=== PATIENT | female | born 1970 | race Caucasian/White ===

== ENCOUNTER → 2018-09-01 14:15 | Outpatient (CLI) | payer OTHER, SELFPAY ==
--- NOTE | 2018-09-01 14:30 | DI.MRI.S_ITS ---
PROCEDURE: MR SHOULDER RT WO CON INDICATIONS: right shoulder pain TECHNIQUE: Noncontrast oblique coronal T2 fast spin echo with fat saturation, oblique sagittal T1 spin echo and T2 fast spin echo with fat saturation, axial T1 spin echo and T2 fast spin echo with fat saturation through the shoulder. COMPARISON: None. FINDINGS: Image quality: Excellent. Rotator cuff: There is mild fissuring of the bursal margin of the supraspinatus tendon. The infraspinatus, and subscapularis tendons appear intact throughout. Sagittal images demonstrate no muscle atrophy. Bones and bursae: There is a 2.2 cm in diameter cystic lesion in the metaphysis of the proximal right humerus. Lesion has well-defined margins with no associated osseous destruction or bone marrow edema. No bone marrow contusions or fractures. No acromioclavicular joint degeneration. The acromion demonstrates conventional anatomy, without an os acromiale. Small amount of fluid noted in the subacromial/subdeltoid bursa. Capsule and soft tissues: In the absence of intra-articular contrast, the labrum and glenohumeral ligaments appear intact. The long head of the biceps tendon demonstrates normal location and morphology. The rotator interval appears normal, without fibrosis. The coracohumeral ligament is normal in thickness. IMPRESSION: 1. Mild fissuring of the bursal margin of the supraspinatus tendon. 2. Mild subacromial/subdeltoid bursitis. 3. 2.5 cm proximal humerus bone cyst. Dictated by: Delmis Araujo MD, PhD on 09/01/2018 at 17:33 Approved by: Delmis Araujo MD, PhD on 09/04/2018 at 9:46
== END ==
PROVIDERS: PCP Family Medicine; Visit Provider Family Medicine
DX: M25.511 Pain in right shoulder (principal); M75.51 Bursitis of right shoulder; M85.621 Other cyst of bone, right upper arm
CPT/HCPCS: 73221

== ENCOUNTER → 2018-09-18 10:51 | Outpatient (CLI) | payer OTHER, SELFPAY ==
[2018-09-18 11:18] LABS: Influenza A and B by PCR Rapid Negative (Negative)
== END ==
PROVIDERS: PCP Family Medicine; Visit Provider Physician Assistant
DX: R68.89 Other general symptoms and signs (principal)
CPT/HCPCS: 87400

== ENCOUNTER → 2018-09-19 10:33 | Outpatient (CLI) | payer OTHER, SELFPAY ==
[2018-09-19 10:38] LABS: WBC Urine None Seen (0-5/HPF)
[2018-09-19 11:34] LABS: Appearance Urine UA CLEAR; Bilirubin Urine UA NEGATIVE (NEGATIVE); Color Urine UA YELLOW; Glucose Urine UA NEGATIVE (Negative); Ketones Urine UA NEGATIVE (NEGATIVE); Leukocyte Esterase Urine UA NEGATIVE (NEGATIVE); Nitrite Urine UA NEGATIVE (Negative); Occult Blood Urine UA 1+ (Negative); Protein Urine UA NEGATIVE (Negative); Specific Gravity Urine UA <=1.005 (1.000-1.035); Urobilinogen Urine UA 0.2 E.U./dL (0.2); pH Urine UA 5.5 (4.5-8.0)
[2018-09-19 11:56] LABS: Bacteria Urine Occasional (0-1); Culture Indicated Urine Cult Not Indicated; RBC Urine 0-1/HPF (0-5/HPF); Squamous Epithelial Cell Urine 0-1 /HPF
== END ==
PROVIDERS: PCP Family Medicine; Visit Provider Family Medicine
DX: M54.5 Low back pain (principal)
CPT/HCPCS: 81001

== ENCOUNTER → 2018-10-24 14:10 | Outpatient (CLI) | payer OTHER, SELFPAY ==
[2018-10-24 15:36] LABS: Alanine Aminotransferase 18 IU/L (9-52); Albumin 4.6 g/dL (3.5-5.0); Albumin Globulin Ratio 1.4 (1.0-2.8); Alkaline Phosphatase 90 U/L (38-126); Aspartate Aminotransferase 18 IU/L (14-36); BUN Creatinine Ratio 17.1 (6-22); Bilirubin Total 0.3 mg/dL (0.2-1.3); Blood Urea Nitrogen 12 mg/dL (7-17); Calcium 9.4 mg/dL (8.4-10.2); Carbon Dioxide 26 mmol/L (22-32); Chloride 103 mmol/L (98-107); Estimated Glomerular Filt Rate > 60.0 mL/min (>60); Globulin 3.4 g/dL (1.7-4.1); Glucose 106 mg/dL (70-100); HEMOLYSIS < 15 (0-50); Phosphorous 3.3 mg/dL (2.5-4.5); Potassium 3.5 mmol/L (3.4-5.1); Sodium 140 mmol/L (137-145)
[2018-10-24 15:46] LABS: Prealbumin 33.8 mg/dL (17.6-36.0)
[2018-10-24 17:17] LABS: Vitamin D 25 Hydroxy (D3) 34.2 ng/mL (30.0-100.0)
== END ==
PROVIDERS: PCP Family Medicine; Visit Provider Family Medicine
DX: E55.9 Vitamin D deficiency, unspecified (principal); E56.9 Vitamin deficiency, unspecified; E78.5 Hyperlipidemia, unspecified; R89.9 Unspecified abnormal finding in specimens from other organs, systems and tissues
CPT/HCPCS: 36415; 80053; 82306; 82728; 83735; 84100; 84134

== ENCOUNTER → 2018-10-30 15:18 | Outpatient (CLI) | payer OTHER, SELFPAY ==
--- NOTE | 2018-10-30 | DI.MG.S_ITS ---
BILATERAL DIGITAL SCREENING MAMMOGRAM 3D/2D WITH CAD: 10/30/2018 CLINICAL: Routine screening. Comparison is made to exams dated: 10/28/2017 mammogram, 10/11/2016 mammogram, and 10/10/2015 mammogram - [facility]. The tissue of both breasts is extremely dense, which lowers the sensitivity of mammography. Current study was also evaluated with a Computer Aided Detection (CAD) system. No significant masses, calcifications, or other findings are seen in either breast. There has been no significant interval change. IMPRESSION: NEGATIVE There is no mammographic evidence of malignancy. A 1 year screening mammogram is recommended. This exam was interpreted at Station ID: [id number]. NOTE: For mammograms, a report in lay terms will be sent to the patient. Approximately 15% of breast malignancies will not be visualized mammographically. In the management of a palpable breast mass, a negative mammogram must not discourage biopsy of a clinically suspicious lesion. Electronically Signed By: Jacek persaud/mana:10/30/2018 20:50:32 copy to: NAHED POZO letter sent: Normal Exam ACR BI-RADS Category 1: Negative [id number]
== END ==
PROVIDERS: PCP Family Medicine; Visit Provider Family Medicine
DX: Z12.31 Encounter for screening mammogram for malignant neoplasm of breast (principal)
CPT/HCPCS: 77063; 77067

== ENCOUNTER 2019-01-10 16:44 | Emergency (ER) | payer OTHER, SELFPAY ==
[2019-01-10 16:55] VITALS: BP 109/64; PULSE 89; RESP 14; TEMP 36.8; O2SAT 100; BMI 25.9
[2019-01-10 17:02] VITALS: BP 100/63; PULSE 74; RESP 16; O2SAT 98
--- NOTE | 2019-01-10 17:02 | DI.US.S_ITS ---
PROCEDURE: US ABDOMEN LIMITED INDICATIONS: RUQ PAIN, CONCERN FOR GB PATHOLOGY TECHNIQUE: Real-time focused scanning was performed of the abdomen, with image documentation. COMPARISON: None. FINDINGS: Incidental note is made of a diffusely echogenic lesion in the right lobe of the liver measuring 1.9 cm in maximum diameter, consistent with a hemangioma. Liver is otherwise unremarkable. No gallstones. No gallbladder wall thickening. No pain on examination. No biliary ductal dilatation. Common bile duct measures 4 mm. Visualized portions of the pancreas are unremarkable. IMPRESSION: 1. No evidence of gallstones. 2. Incidental liver hemangioma. Dictated by: Amandeep Dsa M.D. on 01/10/2019 at 18:26 Approved by: Amandeep Das M.D. on 01/10/2019 at 18:29
--- NOTE | 2019-01-10 17:04 | ED.ABDPAIN ---
HPI - Abdominal Pain <DO Yohan Frey Last Filed: 01/11/19 07:20> General Chief Complaint: Abdominal Pain Stated Complaint: ABD PAIN, BELCHING Time Seen by Provider: 01/10/19 16:54 Source: patient Mode of arrival: ambulatory Limitations: no limitations History of Present Illness HPI narrative: 48-year-old female here for evaluation of right-sided abdominal pain. Patient states that several days ago she started to not feel well. Had some nausea but no vomiting. No change in bowel or urine. States that today she started having right-sided abdominal pain. She states she felt like she needed to belch however was unable to. She was then able to belch which did improve her symptoms somewhat but not completely. She is not a change with urination. No vaginal bleeding. No history of kidney stones. Does get worse with palpation. She went to the walk-in clinic who sent her here for evaluation for concerns of possible appendicitis. Related Data Previous Rx's Medication Instructions Recorded [id number]-[id number]-[id number] 0 tab PO SEE INSTRUCTIONS #30 03/27/18 50 mg-325 mg-40 mg tablet tab-cap cephalexin [Keflex] 500 mg PO QID 10 Days #40 cap 01/10/19 hydrocodone-acetaminophen 1 tab PO Q4-6H PRN #10 tab 01/10/19 ondansetron 4 mg PO TID-QID PRN #10 tab 01/10/19 Allergies Allergy/AdvReac Type Severity Reaction Status Date / Time Sulfa (Sulfonamide AdvReac Mild VOMITING Verified 01/10/19 17:31 Antibiotics) [SULFA (SULFONAMIDE ANTIBIOTICS)] Review of Systems <DO Yohan Frey Last Filed: 01/11/19 07:20> Constitutional Denies fever(s) and Denies headache(s) ENT Ears, Nose, Mouth, and Throat: Denies headache(s) Cardiovascular Denies chest pain, Denies syncope and Denies dyspnea Respiratory Denies dyspnea Gastrointestinal Gastrointestinal: Reports abdominal pain, Denies change in stool character, Reports nausea and Denies vomiting Genitourinary Denies dysuria and Denies vaginal discharge Musculoskeletal Denies myalgias and Denies arthralgias Integumentary/Breasts Denies rash Neurologic Denies syncope and Denies headache(s) Hematologic/Lymphatic Denies easy bleeding and Denies easy bruising PFSH <DO Yohan Frey Last Filed: 01/11/19 07:20> Medical History Adjustment disorder (Chronic) Asthma (Chronic) CTS (carpal tunnel syndrome) (Chronic 1998) Migraines (Chronic 1986) Painful menstrual periods (Chronic 2005) Abnormal Pap smear of cervix (Resolved) Acne (Resolved 2010) Chicken pox (Resolved 1973) Foot fracture (Resolved 1987) Ovarian cyst (Resolved 2002) Social History Smoking Status: Never smoker Exam <DO Yohan Frey Last Filed: 01/11/19 07:20> Initial Vital Signs Initial Vital Signs: Vital Signs Temperature 98.3 F 01/10/19 16:55 Pulse Rate 89 01/10/19 16:55 Respiratory Rate 14 01/10/19 16:55 Blood Pressure 109/64 01/10/19 16:55 Pulse Oximetry 100 01/10/19 16:55 Const General: cooperative, comfortable, well developed, well groomed and No acute distress Orientation: alert and awake [facility] Head: normal to inspection and normocephalic Resp Effort & Inspection: normal respiratory effort Auscultation: clear to auscultation bilaterally Cardio Rate: regular rate Rhythm: regular rhythm GI Inspection: non-distended Palpation: soft, No firm and tender (Right upper quadrant, right flank) Back/Spine/Pelvis Back: No CVA tenderness Skin Lesions: no lesions Rashes: no rashes Neuro General: alert and awake Cognition: normal cognition Speech: speech normal Extrem General: normal to inspection and capillary refill normal Psych Appearance: grossly normal and well kempt <Mikael Bocanegra DO - Last Filed: 01/10/19 19:39> Initial Vital Signs Initial Vital Signs: Vital Signs Temperature 98.3 F 01/10/19 16:55 Pulse Rate 89 01/10/19 16:55 Respiratory Rate 14 01/10/19 16:55 Blood Pressure 109/64 01/10/19 16:55 Pulse Oximetry 100 01/10/19 16:55 Course <Isael Brewer DO - Last Filed: 01/11/19 07:20> Orders Ordered: ED Orders 01/10/19 16:58 Complete Blood Count AUTO DIFF Stat Comprehensive Metabolic Panel Stat Lipase Stat 01/10/19 17:02 US abdomen limited Stat 01/10/19 17:58 Urine Culture Stat Urine Microscopic Stat Vital Signs - 8 hr 01/10/19 16:55 01/10/19 17:02 01/10/19 19:00 Temperature 98.3 F Pulse Rate 89 74 72 Respiratory Rate 14 16 17 Blood Pressure 109/64 Blood Pressure [Right Arm] 100/63 105/70 Pulse Oximetry 100 98 100 <Mikael Bocanegra DO - Last Filed: 01/10/19 19:39> Course Narrative: Patient received in sign-out from Dr. Brewer. I performed an independent history and physical exam no significant additions to his documentation. Labs and ultrasound are back. The ultrasound has no significant findings but does note the incidental finding of hemangioma Orders Ordered: ED Orders 01/10/19 16:58 Complete Blood Count AUTO DIFF Stat Comprehensive Metabolic Panel Stat Lipase Stat 01/10/19 17:02 US abdomen limited Stat 01/10/19 17:58 Urine Culture Stat Urine Microscopic Stat Vital Signs - 8 hr 01/10/19 16:55 01/10/19 17:02 01/10/19 19:00 Temperature 98.3 F Pulse Rate 89 74 72 Respiratory Rate 14 16 17 Blood Pressure 109/64 Blood Pressure [Right Arm] 100/63 105/70 Pulse Oximetry 100 98 100 MDM - Abdominal Pain <Isael Brewer, DO - Last Filed: 01/11/19 07:20> Lab Data Attestation: I reviewed the patient's lab results. Result diagrams: 01/10/19 16:58 01/10/19 16:58 Lab Results 01/10/19 01/10/19 01/10/19 Range/Units 16:58 16:58 17:58 WBC 12.9 H (4.5-11.0) X10^3/uL RBC 5.11 (4.0-5.2) X10^6/uL Hgb 14.5 (12.0-16.0) g/dL Hct 43.8 (36-46) % MCV 85.7 (80-100) fL MCH 28.5 (26-34) PG MCHC 33.2 (30-36) % RDW 13.7 (11.6-14.8) % Plt Count 296 (150-400) X10^3/uL Neut % (Auto) 64.7 (50-75) % Lymph % (Auto) 24.5 L (25-40) % [place] % (Auto) 7.6 (3-14) % Eos % (Auto) 2.5 (2-4) % Baso % (Auto) 0.7 (0-2) % Neut # (Auto) 8300 H (9453-8421) /uL Lymph # (Auto) 3200 (5422-4085) /uL [place] # (Auto) 1000 H (0-900) /uL Eos # (Auto) 300 (0-450) /uL Baso # (Auto) 100 (0-100) /uL Sodium 139 (137-145) mmol/L Potassium 4.4 (3.4-5.1) mmol/L Chloride 103 (98-107) mmol/L Carbon Dioxide 25 (22-32) mmol/L BUN 12 (7-17) mg/dL Creatinine 0.60 (0.52-1.04) mg/dL Estimated GFR > 60.0 (>60) mL/min BUN/Creatinine Ratio 20.0 (6-22) Glucose 87 (70-100) mg/dL Calcium 9.6 (8.4-10.2) mg/dL Total Bilirubin 0.5 (0.2-1.3) mg/dL AST 22 (14-36) IU/L ALT 23 (9-52) IU/L Alkaline Phosphatase 99 (38-126) U/L Total Protein 8.4 H (6.3-8.2) g/dL Albumin 4.6 (3.5-5.0) g/dL Globulin 3.8 (1.7-4.1) g/dL Albumin/Globulin Ratio 1.2 (1.0-2.8) Lipase 202 (23-300) U/L Urine RBC 0-1/hpf (0-5/HPF) Urine WBC 1-5/hpf (0-5/HPF) Ur Squamous Epith Cells 0-1 /hpf (0-5/HPF) Amorphous Sediment 1+ Urine Bacteria Few (2-10) H (None) Urine Mucus 1+ H (Negative) Ur Culture Indicated? Specimen cultured Point of care testing: Point of Care Testing Test Results Negative Urine Dip Bedside Urine Glucose Negative Bedside Urine Bilirubin - Negative Bedside Urine Ketone - Negative Urine Specific [place] 1.030 Bedside Urine Occult Blood + Bedside Urine pH 5.5 Bedside Urine Protein - Negative Bedside Urine Urobilinogen +/- 1mg Bedside Urine Nitrite - Negative Bedside Urine Leukocytes + 70 Esterase MDM Narrative Medical decision making narrative: Leukocytosis but no left shift. Does have blood in the urine. Labs otherwise unremarkable. Waiting ultrasound results. Care turned over to Dr. Bocanegra unchanged 50 follow-up on results. <Mikael Bocanegra DO - Last Filed: 01/10/19 19:39> Lab Data Lab Results 01/10/19 01/10/19 01/10/19 Range/Units 16:58 16:58 17:58 WBC 12.9 H (4.5-11.0) X10^3/uL RBC 5.11 (4.0-5.2) X10^6/uL Hgb 14.5 (12.0-16.0) g/dL Hct 43.8 (36-46) % MCV 85.7 (80-100) fL MCH 28.5 (26-34) PG MCHC 33.2 (30-36) % RDW 13.7 (11.6-14.8) % Plt Count 296 (150-400) X10^3/uL Neut % (Auto) 64.7 (50-75) % Lymph % (Auto) 24.5 L (25-40) % [place] % (Auto) 7.6 (3-14) % Eos % (Auto) 2.5 (2-4) % Baso % (Auto) 0.7 (0-2) % Neut # (Auto) 8300 H (7506-8686) /uL Lymph # (Auto) 3200 (9701-3223) /uL [place] # (Auto) 1000 H (0-900) /uL Eos # (Auto) 300 (0-450) /uL Baso # (Auto) 100 (0-100) /uL Sodium 139 (137-145) mmol/L Potassium 4.4 (3.4-5.1) mmol/L Chloride 103 (98-107) mmol/L Carbon Dioxide 25 (22-32) mmol/L BUN 12 (7-17) mg/dL Creatinine 0.60 (0.52-1.04) mg/dL Estimated GFR > 60.0 (>60) mL/min BUN/Creatinine Ratio 20.0 (6-22) Glucose 87 (70-100) mg/dL Calcium 9.6 (8.4-10.2) mg/dL Total Bilirubin 0.5 (0.2-1.3) mg/dL AST 22 (14-36) IU/L ALT 23 (9-52) IU/L Alkaline Phosphatase 99 (38-126) U/L Total Protein 8.4 H (6.3-8.2) g/dL Albumin 4.6 (3.5-5.0) g/dL Globulin 3.8 (1.7-4.1) g/dL Albumin/Globulin Ratio 1.2 (1.0-2.8) Lipase 202 (23-300) U/L Urine RBC 0-1/hpf (0-5/HPF) Urine WBC 1-5/hpf (0-5/HPF) Ur Squamous Epith Cells 0-1 /hpf (0-5/HPF) Amorphous Sediment 1+ Urine Bacteria Few (2-10) H (None) Urine Mucus 1+ H (Negative) Ur Culture Indicated? Specimen cultured Point of care testing: Point of Care Testing Test Results Negative Urine Dip Bedside Urine Glucose Negative Bedside Urine Bilirubin - Negative Bedside Urine Ketone - Negative Urine Specific [place] 1.030 Bedside Urine Occult Blood + Bedside Urine pH 5.5 Bedside Urine Protein - Negative Bedside Urine Urobilinogen +/- 1mg Bedside Urine Nitrite - Negative Bedside Urine Leukocytes + 70 Esterase MDM Narrative Medical decision making narrative: 48 year old female with worsening R sided abdominal pain which seems a bit colicky. She has some reproduction of pain to palpation in RUQ. No pain in RLQ. As noted she has a slight elevation in WBCs but no L shift. UA notes L[place] and hematuria. She does admit to some atypical urination and some discomfort in her back. It seems unlikely that her UTI is contributing to her RUQ pain. Biliary, liver, pancreatitis, appendicitis considered, but thought less likely given history, exam, labs, imaging. Lengthy discussion regarding advanced imaging with CT and patient would elect to hold off for now despite a discussion of risks/benefits. She has been given return precautions and evidences her understanding by verbalizing them back to me. She is in complete agreement with discharge diagnosis and return precautions. She has had questions answered to her apparent satisfaction. Discharge Plan Departure Patient Disposition: Home Clinical Impression: Right sided abdominal pain, Pyelonephritis Discharge Date/Time: 01/10/19 19:37 Interventions: ED Discharge Assessment Last Done: 01/10/19 19:36 Instructions: Acute Abdominal Pain, DI for Urinary Tract Infection (UTI) Activity Restrictions/Additional Instructions: *You have been diagnosed with [acute right-sided abdominal pain, UTI (possible early pyelonephritis) incidental finding of liver hemangioma on ultrasound] *What to do: *Take medications as directed *Follow up for repeat abdominal exam in 12-24 hours. Return to the Emergency Department sooner if you should have any new, worsening or concerning symptoms such as worsening pain, fever > 101F, vomiting, or anything else that is bothersome to you. Prescriptions: New hydrocodone-acetaminophen 5-325 mg tablet 1 tab PO Q4-6H PRN (Reason: pain) Qty: 10 RF: 0 ondansetron 4 mg tablet,disintegrating 4 mg PO TID-QID PRN (Reason: nausea and vomiting) Qty: 10 RF: 0 cephalexin [Keflex] 500 mg capsule 500 mg PO QID 10 Days Qty: 40 RF: 0 No Action [id number] 50-325-40 mg tablet PO SEE INSTRUCTIONS Qty: 30 RF: 3 Referrals: Claudio Domínguez MD [Primary Care Provider] -
[2019-01-10 17:08] LABS: Add Manual Diff / Slide Review NO; Basophils Absolute Auto 100 /uL (0-100); Basophils Percent Auto 0.7 % (0-2); Eosinophils Absolute Auto 300 /uL (0-450); Eosinophils Percent Auto 2.5 % (2-4); Hematocrit 43.8 % (36-46); Hemoglobin 14.5 g/dL (12.0-16.0); Lymphocytes Absolute Auto 3200 /uL (1100-4500); Lymphocytes Percent Auto 24.5 % (25-40); Mean Corpuscular HGB Conc 33.2 % (30-36); Mean Corpuscular Hemoglobin 28.5 PG (26-34); Mean Corpuscular Volume 85.7 fL (80-100); Monocytes Absolute Auto 1000 /uL (0-900); Monocytes Percent Auto 7.6 % (3-14); Neutrophils Absolute Auto 8300 /uL (1500-7000); Neutrophils Percent Auto 64.7 % (50-75); Platelet Count 296 X10^3/uL (150-400); Red Blood Cell Count 5.11 X10^6/uL (4.0-5.2); Red Cell Distribution Width 13.7 % (11.6-14.8); White Blood Cell Count 12.9 X10^3/uL (4.5-11.0)
[2019-01-10 17:17] LABS: Alanine Aminotransferase 23 IU/L (9-52); Albumin 4.6 g/dL (3.5-5.0); Albumin Globulin Ratio 1.2 (1.0-2.8); Alkaline Phosphatase 99 U/L (38-126); Aspartate Aminotransferase 22 IU/L (14-36); Bilirubin Total 0.5 mg/dL (0.2-1.3); Blood Urea Nitrogen 12 mg/dL (7-17); Calcium 9.6 mg/dL (8.4-10.2); Carbon Dioxide 25 mmol/L (22-32); Chloride 103 mmol/L (98-107); Estimated Glomerular Filt Rate > 60.0 mL/min (>60); Globulin 3.8 g/dL (1.7-4.1); Glucose 87 mg/dL (70-100); HEMOLYSIS < 15 (0-50); Lipase 202 U/L (23-300); Potassium 4.4 mmol/L (3.4-5.1); Sodium 139 mmol/L (137-145); Total Protein 8.4 g/dL (6.3-8.2)
[2019-01-10 18:13] LABS: Amorphous Sediment Urine 1+; RBC Urine 0-1/HPF (0-5/HPF); Squamous Epithelial Cell Urine 0-1 /HPF (0-5/HPF); WBC Urine 1-5/HPF (0-5/HPF)
[2019-01-10 18:14] LABS: Bacteria Urine Few (2-10); Culture Indicated Urine Specimen Cultured; Mucus Urine 1+ (Negative)
[2019-01-10 19:00] VITALS: BP 105/70; PULSE 72; RESP 17; O2SAT 100
== END 2019-01-10 19:37 | disposition home or self-care (01) ==
PROVIDERS: Emergency Medicine; Emergency Provider Emergency Medicine; Family Provider Family Medicine; PCP Family Medicine
DX: R10.9 Unspecified abdominal pain (principal); N12 Tubulo-interstitial nephritis, not specified as acute or chronic
CPT/HCPCS: 36415; 36591; 76705; 80053; 81003; 81015; 81025; 83690; 85025; 87077; 87086; 87186; 99282; 99284

== ENCOUNTER 2019-01-25 16:41 | Emergency (ER) | payer OTHER, SELFPAY ==
[2019-01-25 16:43] VITALS: BP 126/72; PULSE 96; RESP 20; TEMP 36.7; O2SAT 96
--- NOTE | 2019-01-25 18:11 | ED.ABDPAIN ---
HPI - Abdominal Pain <Thea Mesa PA-C - Last Filed: 01/25/19 21:14> General Chief Complaint: Abdominal Pain Stated Complaint: no BM for 2 weeks, lots of pain today Time Seen by Provider: 01/25/19 18:03 Source: patient Mode of arrival: ambulatory Limitations: no limitations History of Present Illness HPI narrative: This 48-year-old female comes in due to greater than 2 week history of abdominal pain. She states this started on the with body aches and generalized fatigue over the next few days, then started to have ?gas pain? all over her abdomen. She was evaluated in the ED with ultrasound and lab work, diagnosed with pyelonephritis and treated. She had a negative test at that time. She states that she has had low-grade temperatures up to 99. She has had persistent difficulty moving her bowels (normally soft, regular stools, but in the last 2 weeks feels like stools are harder and has to strain). She has not seen blood or mucus in the stools. She states she has been drinking lots of fluids and eating fairly normally. She states that her symptoms improved minimally on the antibiotics, but on Tuesday spiked a temperature of 101?, no fever yesterday. She did see her PCP again due to persistent symptoms and had a CT scan scheduled for tomorrow. She comes in today because she did not have a bowel movement today (had 1 yesterday) despite taking stool softener, and states that she felt like ?bowels would explode? today and had to partially manually disimpact herself at work. She states she has been taking 1 or 2 [place] per day for pain but has been using a stool softener. She states that she did work today and has been trying to do her usual activities as pain waxes and wanes, but definitely worse and more persistent in the last 3 days. She again denies possibility of , has IUD in place and menses now. She has not had any recent illness, i.e. respiratory symptoms. She denies any recent antibiotics aside from last 2 weeks, recent travel or known exposures. Not on well water. Related Data Home Medications Medication Instructions Recorded Confirmed Calcium 1 tab PO DAILY 01/25/19 01/25/19 Fish Oil 1 cap PO DAILY 01/25/19 01/25/19 Stool Softener 2 cap PO PRN PRN 01/25/19 01/25/19 Vitamin B 1 cap PO DAILY 01/25/19 01/25/19 [id number] 1 tab PO PRN PRN 01/25/19 01/25/19 ibuprofen 1 dose PO PRN PRN 01/25/19 01/25/19 multivitamin 1 tab PO DAILY 01/25/19 01/25/19 Previous Rx's Medication Instructions Recorded ciprofloxacin 500 mg tablet 500 mg PO BID #30 tab 01/23/19 hydrocodone 5 mg-acetaminophen 325 1 tab PO BEDTIME PRN #14 tab 01/23/19 mg tablet Allergies Allergy/AdvReac Type Severity Reaction Status Date / Time Sulfa (Sulfonamide AdvReac Mild VOMITING Verified 01/23/19 10:28 Antibiotics) [SULFA (SULFONAMIDE ANTIBIOTICS)] PFSH <Thea Mesa PA-C - Last Filed: 01/25/19 21:14> Social History Smoking Status: Never smoker Exam <Thea Mesa PA-C - Last Filed: 01/25/19 21:14> Narrative Exam Narrative: GENERAL APPEARANCE: Patient sitting comfortably, in no distress. HEENT: PERRL, EOMI, no scleral icterus, conjunctivae pink, normal oropharynx NECK: Supple, no masses LUNGS: Clear to auscultation bilaterally. HEART: Rate and rhythm regular, normal S1 and S2, no S3 or S4. ABDOMEN: Soft, generalized tenderness to palpation throughout midline and both lower quadrants without clear guarding or rebound. No CVAT EXTREMITIES: No edema, no calf tenderness DERMATOLOGIC: No jaundice or exanthem NEUROLOGIC: Alert and oriented with normal speech and coordination Initial Vital Signs Initial Vital Signs: Vital Signs Temperature 98.1 F 01/25/19 16:43 Pulse Rate 96 H 01/25/19 16:43 Respiratory Rate 20 01/25/19 16:43 Blood Pressure 126/72 01/25/19 16:43 Pulse Oximetry 96 01/25/19 16:43 <Yolis Gaston MD - Last Filed: 01/26/19 02:54> Initial Vital Signs Initial Vital Signs: Vital Signs Temperature 98.1 F 01/25/19 16:43 Pulse Rate 96 H 01/25/19 16:43 Respiratory Rate 20 01/25/19 16:43 Blood Pressure 126/72 01/25/19 16:43 Pulse Oximetry 96 01/25/19 16:43 Course <Thea Mesa PA-C - Last Filed: 01/25/19 21:14> Additional Information: Reviewed findings with patient, no acute issue on CT scan, does have significant constipation and pain. She thinks that she disimpacted everything lower down in her rectum and feels like stool is higher up. She will start MiraLax/juice/antacid combination. She has picked up castor oil and can add that if desired. Continue stool softeners. Advised continuing [place] as needed as she does need to deal with pain so she can evacuate, however advised to add routine ibuprofen to help minimize the need for this. She will call PCP 1st thing in the morning regarding follow-up and can request other medications such as GoLYTELY if not improving with the recipe I gave her, which should be more gentle. She is agreeable with above as well as plan to return if any acute changes such as vomiting. Orders Ordered: ED Orders 01/25/19 18:26 CT abdomen pelvis w con Stat 01/25/19 18:30 Complete Blood Count AUTO DIFF Stat Comprehensive Metabolic Panel Stat Lactate (Lactic Acid) Stat Lipase Stat Monotest Stat Discontinued Medications Hydrocodone Bitart/Acetaminophen ([place] 5/325) 2 tab PO NOW ONE Stop: 01/25/19 20:48 Last Admin: 01/25/19 20:54 Dose: 2 tab Sodium Chloride (Normal Saline 0.9%) 500 mls @ 1,000 mls/hr IV BOLUS ONE Stop: 01/25/19 18:33 Last Infusion: 01/25/19 19:26 Dose: 0 mls/hr Admin: 01/25/19 18:44 Dose: 1,000 mls/hr Sodium Chloride (Normal Saline 0.9%) 500 mls @ 1,000 mls/hr IV BOLUS ONE Stop: 01/25/19 19:56 Last Infusion: 01/25/19 19:58 Dose: 1,000 mls/hr Admin: 01/25/19 19:28 Dose: 1,000 mls/hr Ketorolac Tromethamine (Toradol) 30 mg IV NOW ONE Stop: 01/25/19 18:41 Last Admin: 01/25/19 18:42 Dose: 30 mg Vital Signs - 8 hr 01/25/19 19:17 01/25/19 20:31 Pulse Rate 75 79 Respiratory Rate 13 12 Blood Pressure [Right Arm] 115/63 102/62 Pulse Oximetry 100 98 <Yolis Gaston MD - Last Filed: 01/26/19 02:54> Orders Ordered: ED Orders 01/25/19 18:26 CT abdomen pelvis w con Stat 01/25/19 18:30 Complete Blood Count AUTO DIFF Stat Comprehensive Metabolic Panel Stat Lactate (Lactic Acid) Stat Lipase Stat Monotest Stat Discontinued Medications Hydrocodone Bitart/Acetaminophen ([place] 5/325) 2 tab PO NOW ONE Stop: 01/25/19 20:48 Last Admin: 01/25/19 20:54 Dose: 2 tab Sodium Chloride (Normal Saline 0.9%) 500 mls @ 1,000 mls/hr IV BOLUS ONE Stop: 01/25/19 18:33 Last Infusion: 01/25/19 19:26 Dose: 0 mls/hr Admin: 01/25/19 18:44 Dose: 1,000 mls/hr Sodium Chloride (Normal Saline 0.9%) 500 mls @ 1,000 mls/hr IV BOLUS ONE Stop: 01/25/19 19:56 Last Infusion: 01/25/19 19:58 Dose: 1,000 mls/hr Admin: 01/25/19 19:28 Dose: 1,000 mls/hr Ketorolac Tromethamine (Toradol) 30 mg IV NOW ONE Stop: 01/25/19 18:41 Last Admin: 01/25/19 18:42 Dose: 30 mg Vital Signs - 8 hr 01/25/19 19:17 01/25/19 20:31 Pulse Rate 75 79 Respiratory Rate 13 12 Blood Pressure [Right Arm] 115/63 102/62 Pulse Oximetry 100 98 MDM - Abdominal Pain <Thea Mesa PA-C - Last Filed: 01/25/19 21:14> Lab Data Attestation: I reviewed the patient's lab results. Result diagrams: 01/25/19 18:30 01/25/19 18:30 Lab Results 01/25/19 01/25/19 01/25/19 Range/Units 18:30 18:30 18:30 WBC 14.8 H (4.5-11.0) X10^3/uL RBC 4.98 (4.0-5.2) X10^6/uL Hgb 14.2 (12.0-16.0) g/dL Hct 42.4 (36-46) % MCV 85.1 (80-100) fL MCH 28.4 (26-34) PG MCHC 33.4 (30-36) % RDW 13.5 (11.6-14.8) % Plt Count 281 (150-400) X10^3/uL Neut % (Auto) 64.8 (50-75) % Lymph % (Auto) 25.6 (25-40) % [place] % (Auto) 7.5 (3-14) % Eos % (Auto) 1.4 L (2-4) % Baso % (Auto) 0.7 (0-2) % Neut # (Auto) 9600 H (8408-4847) /uL Lymph # (Auto) 3800 (0527-1589) /uL [place] # (Auto) 1100 H (0-900) /uL Eos # (Auto) 200 (0-450) /uL Baso # (Auto) 100 (0-100) /uL Sodium 141 (137-145) mmol/L Potassium 4.7 (3.4-5.1) mmol/L Chloride 106 (98-107) mmol/L Carbon Dioxide 23 (22-32) mmol/L BUN 10 (7-17) mg/dL Creatinine 0.60 (0.52-1.04) mg/dL Estimated GFR > 60.0 (>60) mL/min BUN/Creatinine Ratio 16.7 (6-22) Glucose 77 (70-100) mg/dL Lactate 1.9 (0.7-2.1) mmol/L Calcium 9.4 (8.4-10.2) mg/dL Total Bilirubin 0.7 (0.2-1.3) mg/dL AST 27 (14-36) IU/L ALT 12 (9-52) IU/L Alkaline Phosphatase 69 (38-126) U/L Total Protein 8.3 H (6.3-8.2) g/dL Albumin 4.5 (3.5-5.0) g/dL Globulin 3.8 (1.7-4.1) g/dL Albumin/Globulin Ratio 1.2 (1.0-2.8) Lipase 124 (23-300) U/L Monoscreen (Negative) 01/25/19 Range/Units 18:30 WBC (4.5-11.0) X10^3/uL RBC (4.0-5.2) X10^6/uL Hgb (12.0-16.0) g/dL Hct (36-46) % MCV (80-100) fL MCH (26-34) PG MCHC (30-36) % RDW (11.6-14.8) % Plt Count (150-400) X10^3/uL Neut % (Auto) (50-75) % Lymph % (Auto) (25-40) % [place] % (Auto) (3-14) % Eos % (Auto) (2-4) % Baso % (Auto) (0-2) % Neut # (Auto) (0101-3874) /uL Lymph # (Auto) (7835-8968) /uL [place] # (Auto) (0-900) /uL Eos # (Auto) (0-450) /uL Baso # (Auto) (0-100) /uL Sodium (137-145) mmol/L Potassium (3.4-5.1) mmol/L Chloride (98-107) mmol/L Carbon Dioxide (22-32) mmol/L BUN (7-17) mg/dL Creatinine (0.52-1.04) mg/dL Estimated GFR (>60) mL/min BUN/Creatinine Ratio (6-22) Glucose (70-100) mg/dL Lactate (0.7-2.1) mmol/L Calcium (8.4-10.2) mg/dL Total Bilirubin (0.2-1.3) mg/dL AST (14-36) IU/L ALT (9-52) IU/L Alkaline Phosphatase (38-126) U/L Total Protein (6.3-8.2) g/dL Albumin (3.5-5.0) g/dL Globulin (1.7-4.1) g/dL Albumin/Globulin Ratio (1.0-2.8) Lipase (23-300) U/L Monoscreen Negative (Negative) Point of care testing: Urine Dip Bedside Urine Glucose Negative Bedside Urine Bilirubin - Negative Bedside Urine Ketone - Negative Urine Specific [place] 1.010 Bedside Urine Occult Blood - Negative Bedside Urine pH 6.5 Bedside Urine Protein - Negative Bedside Urine Urobilinogen - Negative Bedside Urine Nitrite - Negative Bedside Urine Leukocytes - Negative Esterase Imaging Data CT scan - abdomen: Radiologist's impression: [address] [address] [address] Scan Report Signed Patient: Lisa Huizar MMR#: [id number] : 1970Acct:[id number] Age/Sex: 48 / FDate of Service: 01/25/19 Loc: ED Accession Number: [id number] Procedure: CT abdomen pelvis w con Ordering Provider: Thea Mesa P.A-C PROCEDURE: CT ABDOMEN PELVIS W CON INDICATIONS: worsening LQ pain, fever, bowel changes TECHNIQUE: After the administration of oral and intravenous contrast, 5 mm thick sections acquired from the diaphragms to the symphysis. 5 mm thick coronal and sagittal reformats were performed. For radiation dose reduction, the following was used: automated exposure control, adjustment of mA and/or kV according to patient size. COMPARISON: [facility], CT, IVP (ABD & PEL WWO CONTRAST), 05/15/2014, 16:24. [facility], US, US ABDOMEN LIMITED, 01/10/2019, 17:15. FINDINGS: Image quality: Excellent. ABDOMEN: Lung bases: Lung bases are clear. Heart size is normal. Solid organs: Liver is normal in size and enhancement. There is a 1.2 x 2.1 cm hypodense nodule in the inferior liver, unchanged in size from the last exam. On the comparison ultrasound, there is a hypoechoic mass compatible with a hepatic hemangioma in the same area. Gallbladder is normal. Biliary system is non-dilated. Pancreas enhances normally. Spleen is normal in size and enhancement. No adrenal nodules. Kidneys are normal in size and enhancement, without hydronephrosis. Peritoneum and bowel: There is a large amount stool in colon. Stomach, small bowel, and colon loops are normal in caliber and wall thickness. The appendix is normal. No free fluid or air. Nodes and vessels: No retroperitoneal or mesenteric adenopathy. Aorta and inferior vena cava are normal in caliber. Miscellaneous: No ventral hernias. PELVIS: Genitourinary: Bladder wall thickness is normal. There is an intrauterine device. Ovaries are normal in size. Ovarian cysts are noted bilaterally. Miscellaneous: No inguinal hernias or adenopathy. Bones: No suspicious bony lesions. No vertebral body compression fractures. IMPRESSION: 1. A large amount of stool in colon. 2. A 1.2 x 2.1 cm low density nodule in the inferior liver, which is unchanged in size since 05/15/2014 and currently with ultrasound finding of a hepatic hemangioma in the same area. Dictated by: Karlos Miller M.D. on 01/25/2019 at 20:26 Approved by: Karlos Miller M.D. on 01/25/2019 at 20:33 <Yolis Gaston MD - Last Filed: 01/26/19 02:54> Lab Data Lab Results 01/25/19 01/25/19 01/25/19 Range/Units 18:30 18:30 18:30 WBC 14.8 H (4.5-11.0) X10^3/uL RBC 4.98 (4.0-5.2) X10^6/uL Hgb 14.2 (12.0-16.0) g/dL Hct 42.4 (36-46) % MCV 85.1 (80-100) fL MCH 28.4 (26-34) PG MCHC 33.4 (30-36) % RDW 13.5 (11.6-14.8) % Plt Count 281 (150-400) X10^3/uL Neut % (Auto) 64.8 (50-75) % Lymph % (Auto) 25.6 (25-40) % [place] % (Auto) 7.5 (3-14) % Eos % (Auto) 1.4 L (2-4) % Baso % (Auto) 0.7 (0-2) % Neut # (Auto) 9600 H (1935-6813) /uL Lymph # (Auto) 3800 (3927-8960) /uL [place] # (Auto) 1100 H (0-900) /uL Eos # (Auto) 200 (0-450) /uL Baso # (Auto) 100 (0-100) /uL Sodium 141 (137-145) mmol/L Potassium 4.7 (3.4-5.1) mmol/L Chloride 106 (98-107) mmol/L Carbon Dioxide 23 (22-32) mmol/L BUN 10 (7-17) mg/dL Creatinine 0.60 (0.52-1.04) mg/dL Estimated GFR > 60.0 (>60) mL/min BUN/Creatinine Ratio 16.7 (6-22) Glucose 77 (70-100) mg/dL Lactate 1.9 (0.7-2.1) mmol/L Calcium 9.4 (8.4-10.2) mg/dL Total Bilirubin 0.7 (0.2-1.3) mg/dL AST 27 (14-36) IU/L ALT 12 (9-52) IU/L Alkaline Phosphatase 69 (38-126) U/L Total Protein 8.3 H (6.3-8.2) g/dL Albumin 4.5 (3.5-5.0) g/dL Globulin 3.8 (1.7-4.1) g/dL Albumin/Globulin Ratio 1.2 (1.0-2.8) Lipase 124 (23-300) U/L Monoscreen (Negative) 01/25/19 Range/Units 18:30 WBC (4.5-11.0) X10^3/uL RBC (4.0-5.2) X10^6/uL Hgb (12.0-16.0) g/dL Hct (36-46) % MCV (80-100) fL MCH (26-34) PG MCHC (30-36) % RDW (11.6-14.8) % Plt Count (150-400) X10^3/uL Neut % (Auto) (50-75) % Lymph % (Auto) (25-40) % [place] % (Auto) (3-14) % Eos % (Auto) (2-4) % Baso % (Auto) (0-2) % Neut # (Auto) (0358-8585) /uL Lymph # (Auto) (9235-1462) /uL [place] # (Auto) (0-900) /uL Eos # (Auto) (0-450) /uL Baso # (Auto) (0-100) /uL Sodium (137-145) mmol/L Potassium (3.4-5.1) mmol/L Chloride (98-107) mmol/L Carbon Dioxide (22-32) mmol/L BUN (7-17) mg/dL Creatinine (0.52-1.04) mg/dL Estimated GFR (>60) mL/min BUN/Creatinine Ratio (6-22) Glucose (70-100) mg/dL Lactate (0.7-2.1) mmol/L Calcium (8.4-10.2) mg/dL Total Bilirubin (0.2-1.3) mg/dL AST (14-36) IU/L ALT (9-52) IU/L Alkaline Phosphatase (38-126) U/L Total Protein (6.3-8.2) g/dL Albumin (3.5-5.0) g/dL Globulin (1.7-4.1) g/dL Albumin/Globulin Ratio (1.0-2.8) Lipase (23-300) U/L Monoscreen Negative (Negative) Point of care testing: Urine Dip Bedside Urine Glucose Negative Bedside Urine Bilirubin - Negative Bedside Urine Ketone - Negative Urine Specific [place] 1.010 Bedside Urine Occult Blood - Negative Bedside Urine pH 6.5 Bedside Urine Protein - Negative Bedside Urine Urobilinogen - Negative Bedside Urine Nitrite - Negative Bedside Urine Leukocytes - Negative Esterase Discharge Plan Departure Patient Disposition: Home Clinical Impression: Constipation Qualifiers: Constipation type: unspecified constipation type Qualified Code(s): K59.00 - Constipation, unspecified Abdominal pain Qualifiers: Abdominal location: lower abdomen, unspecified Qualified Code(s): R10.30 - Lower abdominal pain, unspecified Discharge Date/Time: 01/25/19 21:05 Interventions: ED Discharge Assessment Last Done: 01/25/19 21:05 Instructions: DI for Constipation Activity Restrictions/Additional Instructions: Your testing today shows some severe constipation, but not any evidence of a bowel blockage or other acute surgical issue. You can cancel your scan scheduled for tomorrow, and please call Dr. Domínguez's office 1st thing in the morning to let them know you were seen here and arrange follow-up. Tonight, please start a ?cocktail?, with a dose of MiraLax mixed with 4-6 oz each of prune and apple juice along with a dose of liquid Maalox or Mylanta. Repeat that in the morning. Continue that daily until your bowels are moving regularly, then you can changed to plain MiraLax alone. You can continue your stool softeners, and you can also try a dose of castor oil if you wish since you picked that up already. You should return if you have new symptoms such as vomiting, or acutely worsening pain or high fever. As we discussed, if you continue to have bowel symptoms after the constipation is better, you may need further testing, i.e. with colonoscopy. Dr. Domínguez can help you get set up for this. I suspect that using the hydrocodone/acetaminophen did not cause your symptoms since you your already having some pain and bowel changes when you started it, but it may have worsened or prolonged them. You should use it if needed for pain while we are helping the constipation with a bowel medicines. Please also take 800 mg of ibuprofen every 8 hours routinely as that may help with pain and help to minimize your need for the hydrocodone. Prescriptions: No Action hydrocodone-acetaminophen [[place]] 5-325 mg tablet 1 tab PO BEDTIME PRN (Reason: pain) Qty: 14 RF: 0 ciprofloxacin HCl [Cipro] 500 mg tablet 500 mg PO BID Qty: 30 RF: 0 multivitamin Tablet 1 tab PO DAILY RF: 0 Calcium 1 tab PO DAILY RF: 0 Fish Oil 1 cap PO DAILY RF: 0 Stool Softener 2 cap PO PRN PRN (Reason: Constipation) RF: 0 Vitamin B 1 cap PO DAILY RF: 0 ibuprofen 1 dose PO PRN PRN (Reason: Fever Or Pain) RF: 0 [id number]-jzlxauknevlil-nblx 50-325-40 mg tablet 1 tab PO PRN PRN (Reason: Migraine Headache) RF: 0 Referrals: Claudio Domínguez MD [Primary Care Provider] -
--- NOTE | 2019-01-25 18:26 | DI.CT.S_ITS ---
PROCEDURE: CT ABDOMEN PELVIS W CON INDICATIONS: worsening LQ pain, fever, bowel changes TECHNIQUE: After the administration of oral and intravenous contrast, 5 mm thick sections acquired from the diaphragms to the symphysis. 5 mm thick coronal and sagittal reformats were performed. For radiation dose reduction, the following was used: automated exposure control, adjustment of mA and/or kV according to patient size. COMPARISON: [facility], CT, IVP (ABD & PEL WWO CONTRAST), 05/15/2014, 16:24. [facility], US, US ABDOMEN LIMITED, 01/10/2019, 17:15. FINDINGS: Image quality: Excellent. ABDOMEN: Lung bases: Lung bases are clear. Heart size is normal. Solid organs: Liver is normal in size and enhancement. There is a 1.2 x 2.1 cm hypodense nodule in the inferior liver, unchanged in size from the last exam. On the comparison ultrasound, there is a hypoechoic mass compatible with a hepatic hemangioma in the same area. Gallbladder is normal. Biliary system is non-dilated. Pancreas enhances normally. Spleen is normal in size and enhancement. No adrenal nodules. Kidneys are normal in size and enhancement, without hydronephrosis. Peritoneum and bowel: There is a large amount stool in colon. Stomach, small bowel, and colon loops are normal in caliber and wall thickness. The appendix is normal. No free fluid or air. Nodes and vessels: No retroperitoneal or mesenteric adenopathy. Aorta and inferior vena cava are normal in caliber. Miscellaneous: No ventral hernias. PELVIS: Genitourinary: Bladder wall thickness is normal. There is an intrauterine device. Ovaries are normal in size. Ovarian cysts are noted bilaterally. Miscellaneous: No inguinal hernias or adenopathy. Bones: No suspicious bony lesions. No vertebral body compression fractures. IMPRESSION: 1. A large amount of stool in colon. 2. A 1.2 x 2.1 cm low density nodule in the inferior liver, which is unchanged in size since 05/15/2014 and currently with ultrasound finding of a hepatic hemangioma in the same area. Dictated by: Karlos Miller M.D. on 01/25/2019 at 20:26 Approved by: Karlos Miller M.D. on 01/25/2019 at 20:33
--- NOTE | 2019-01-25 18:35 | ED_ITS ---
HPI - Abdominal Pain <Thea Mesa PA-C - Last Filed: 01/25/19 21:14> General Chief Complaint: Abdominal Pain Stated Complaint: no BM for 2 weeks, lots of pain today Time Seen by Provider: 01/25/19 18:03 Source: patient Mode of arrival: ambulatory Limitations: no limitations History of Present Illness HPI narrative: This 48-year-old female comes in due to greater than 2 week history of abdominal pain. She states this started on the with body aches and generalized fatigue over the next few days, then started to have ?gas pain? all over her abdomen. She was evaluated in the ED with ultrasound and lab work, diagnosed with pyelonephritis and treated. She had a negative test at that time. She states that she has had low-grade temperatures up to 99. She has had persistent difficulty moving her bowels (normally soft, regular stools, but in the last 2 weeks feels like stools are harder and has to strain). She has not seen blood or mucus in the stools. She states she has been drinking lots of fluids and eating fairly normally. She states that her symptoms improved minimally on the antibiotics, but on Tuesday spiked a temperature of 101?, no fever yesterday. She did see her PCP again due to persistent symptoms and had a CT scan scheduled for tomorrow. She comes in today because she did not have a bowel movement today (had 1 yesterday) despite taking stool softener, and states that she felt like ?bowels would explode? today and had to partially manually disimpact herself at work. She states she has been taking 1 or 2 [place] per day for pain but has been using a stool softener. She states that she did work today and has been trying to do her usual activities as pain waxes and wanes, but definitely worse and more persistent in the last 3 days. She again denies possibility of , has IUD in place and menses now. She has not had any recent illness, i.e. respiratory symptoms. She denies any recent antibiotics aside from last 2 weeks, recent travel or known exposures. Not on well water. Related Data Home Medications Medication Instructions Recorded Confirmed Calcium 1 tab PO DAILY 01/25/19 01/25/19 Fish Oil 1 cap PO DAILY 01/25/19 01/25/19 Stool Softener 2 cap PO PRN PRN 01/25/19 01/25/19 Vitamin B 1 cap PO DAILY 01/25/19 01/25/19 [id number]-[id number] 1 tab PO PRN PRN 01/25/19 01/25/19 ibuprofen 1 dose PO PRN PRN 01/25/19 01/25/19 multivitamin 1 tab PO DAILY 01/25/19 01/25/19 Previous Rx's Medication Instructions Recorded ciprofloxacin 500 mg tablet 500 mg PO BID #30 tab 01/23/19 hydrocodone 5 mg-acetaminophen 325 1 tab PO BEDTIME PRN #14 tab 01/23/19 mg tablet Allergies Allergy/AdvReac Type Severity Reaction Status Date / Time Sulfa (Sulfonamide AdvReac Mild VOMITING Verified 01/23/19 10:28 Antibiotics) [SULFA (SULFONAMIDE ANTIBIOTICS)] PFSH <Thea Mesa PA-C - Last Filed: 01/25/19 21:14> Social History Smoking Status: Never smoker Exam <Thea Mesa PA-C - Last Filed: 01/25/19 21:14> Narrative Exam Narrative: GENERAL APPEARANCE: Patient sitting comfortably, in no distress. HEENT: PERRL, EOMI, no scleral icterus, conjunctivae pink, normal oropharynx NECK: Supple, no masses LUNGS: Clear to auscultation bilaterally. HEART: Rate and rhythm regular, normal S1 and S2, no S3 or S4. ABDOMEN: Soft, generalized tenderness to palpation throughout midline and both lower quadrants without clear guarding or rebound. No CVAT EXTREMITIES: No edema, no calf tenderness DERMATOLOGIC: No jaundice or exanthem NEUROLOGIC: Alert and oriented with normal speech and coordination Initial Vital Signs Initial Vital Signs: Vital Signs Temperature 98.1 F 01/25/19 16:43 Pulse Rate 96 H 01/25/19 16:43 Respiratory Rate 20 01/25/19 16:43 Blood Pressure 126/72 01/25/19 16:43 Pulse Oximetry 96 01/25/19 16:43 <Yolis Gaston MD - Last Filed: 01/26/19 02:54> Initial Vital Signs Initial Vital Signs: Vital Signs Temperature 98.1 F 01/25/19 16:43 Pulse Rate 96 H 01/25/19 16:43 Respiratory Rate 20 01/25/19 16:43 Blood Pressure 126/72 01/25/19 16:43 Pulse Oximetry 96 01/25/19 16:43 Course <Thea Mesa PA-C - Last Filed: 01/25/19 21:14> Additional Information: Reviewed findings with patient, no acute issue on CT scan, does have significant constipation and pain. She thinks that she disimpacted everything lower down in her rectum and feels like stool is higher up. She will start MiraLax/juice/antacid combination. She has picked up castor oil and can add that if desired. Continue stool softeners. Advised continuing [place] as needed as she does need to deal with pain so she can evacuate, however advised to add routine ibuprofen to help minimize the need for this. She will call PCP 1st thing in the morning regarding follow-up and can request other medications such as GoLYTELY if not improving with the recipe I gave her, which should be more gentle. She is agreeable with above as well as plan to return if any acute changes such as vomiting. Orders Ordered: ED Orders 01/25/19 18:26 CT abdomen pelvis w con Stat 01/25/19 18:30 Complete Blood Count AUTO DIFF Stat Comprehensive Metabolic Panel Stat Lactate (Lactic Acid) Stat Lipase Stat Monotest Stat Discontinued Medications Hydrocodone Bitart/Acetaminophen ([place] 5/325) 2 tab PO NOW ONE Stop: 01/25/19 20:48 Last Admin: 01/25/19 20:54 Dose: 2 tab Sodium Chloride (Normal Saline 0.9%) 500 mls @ 1,000 mls/hr IV BOLUS ONE Stop: 01/25/19 18:33 Last Infusion: 01/25/19 19:26 Dose: 0 mls/hr Admin: 01/25/19 18:44 Dose: 1,000 mls/hr Sodium Chloride (Normal Saline 0.9%) 500 mls @ 1,000 mls/hr IV BOLUS ONE Stop: 01/25/19 19:56 Last Infusion: 01/25/19 19:58 Dose: 1,000 mls/hr Admin: 01/25/19 19:28 Dose: 1,000 mls/hr Ketorolac Tromethamine (Toradol) 30 mg IV NOW ONE Stop: 01/25/19 18:41 Last Admin: 01/25/19 18:42 Dose: 30 mg Vital Signs - 8 hr 01/25/19 19:17 01/25/19 20:31 Pulse Rate 75 79 Respiratory Rate 13 12 Blood Pressure [Right Arm] 115/63 102/62 Pulse Oximetry 100 98 <Yolis Gaston MD - Last Filed: 01/26/19 02:54> Orders Ordered: ED Orders 01/25/19 18:26 CT abdomen pelvis w con Stat 01/25/19 18:30 Complete Blood Count AUTO DIFF Stat Comprehensive Metabolic Panel Stat Lactate (Lactic Acid) Stat Lipase Stat Monotest Stat Discontinued Medications Hydrocodone Bitart/Acetaminophen ([place] 5/325) 2 tab PO NOW ONE Stop: 01/25/19 20:48 Last Admin: 01/25/19 20:54 Dose: 2 tab Sodium Chloride (Normal Saline 0.9%) 500 mls @ 1,000 mls/hr IV BOLUS ONE Stop: 01/25/19 18:33 Last Infusion: 01/25/19 19:26 Dose: 0 mls/hr Admin: 01/25/19 18:44 Dose: 1,000 mls/hr Sodium Chloride (Normal Saline 0.9%) 500 mls @ 1,000 mls/hr IV BOLUS ONE Stop: 01/25/19 19:56 Last Infusion: 01/25/19 19:58 Dose: 1,000 mls/hr Admin: 01/25/19 19:28 Dose: 1,000 mls/hr Ketorolac Tromethamine (Toradol) 30 mg IV NOW ONE Stop: 01/25/19 18:41 Last Admin: 01/25/19 18:42 Dose: 30 mg Vital Signs - 8 hr 01/25/19 19:17 01/25/19 20:31 Pulse Rate 75 79 Respiratory Rate 13 12 Blood Pressure [Right Arm] 115/63 102/62 Pulse Oximetry 100 98 MDM - Abdominal Pain <Thea Mesa PA-C - Last Filed: 01/25/19 21:14> Lab Data Attestation: I reviewed the patient's lab results. Result diagrams: 01/25/19 18:30 01/25/19 18:30 Lab Results 01/25/19 01/25/19 01/25/19 Range/Units 18:30 18:30 18:30 WBC 14.8 H (4.5-11.0) X10^3/uL RBC 4.98 (4.0-5.2) X10^6/uL Hgb 14.2 (12.0-16.0) g/dL Hct 42.4 (36-46) % MCV 85.1 (80-100) fL MCH 28.4 (26-34) PG MCHC 33.4 (30-36) % RDW 13.5 (11.6-14.8) % Plt Count 281 (150-400) X10^3/uL Neut % (Auto) 64.8 (50-75) % Lymph % (Auto) 25.6 (25-40) % [place] % (Auto) 7.5 (3-14) % Eos % (Auto) 1.4 L (2-4) % Baso % (Auto) 0.7 (0-2) % Neut # (Auto) 9600 H (8802-0702) /uL Lymph # (Auto) 3800 (3030-2815) /uL [place] # (Auto) 1100 H (0-900) /uL Eos # (Auto) 200 (0-450) /uL Baso # (Auto) 100 (0-100) /uL Sodium 141 (137-145) mmol/L Potassium 4.7 (3.4-5.1) mmol/L Chloride 106 (98-107) mmol/L Carbon Dioxide 23 (22-32) mmol/L BUN 10 (7-17) mg/dL Creatinine 0.60 (0.52-1.04) mg/dL Estimated GFR > 60.0 (>60) mL/min BUN/Creatinine Ratio 16.7 (6-22) Glucose 77 (70-100) mg/dL Lactate 1.9 (0.7-2.1) mmol/L Calcium 9.4 (8.4-10.2) mg/dL Total Bilirubin 0.7 (0.2-1.3) mg/dL AST 27 (14-36) IU/L ALT 12 (9-52) IU/L Alkaline Phosphatase 69 (38-126) U/L Total Protein 8.3 H (6.3-8.2) g/dL Albumin 4.5 (3.5-5.0) g/dL Globulin 3.8 (1.7-4.1) g/dL Albumin/Globulin Ratio 1.2 (1.0-2.8) Lipase 124 (23-300) U/L Monoscreen (Negative) 01/25/19 Range/Units 18:30 WBC (4.5-11.0) X10^3/uL RBC (4.0-5.2) X10^6/uL Hgb (12.0-16.0) g/dL Hct (36-46) % MCV (80-100) fL MCH (26-34) PG MCHC (30-36) % RDW (11.6-14.8) % Plt Count (150-400) X10^3/uL Neut % (Auto) (50-75) % Lymph % (Auto) (25-40) % [place] % (Auto) (3-14) % Eos % (Auto) (2-4) % Baso % (Auto) (0-2) % Neut # (Auto) (7965-6980) /uL Lymph # (Auto) (9012-1657) /uL [place] # (Auto) (0-900) /uL Eos # (Auto) (0-450) /uL Baso # (Auto) (0-100) /uL Sodium (137-145) mmol/L Potassium (3.4-5.1) mmol/L Chloride (98-107) mmol/L Carbon Dioxide (22-32) mmol/L BUN (7-17) mg/dL Creatinine (0.52-1.04) mg/dL Estimated GFR (>60) mL/min BUN/Creatinine Ratio (6-22) Glucose (70-100) mg/dL Lactate (0.7-2.1) mmol/L Calcium (8.4-10.2) mg/dL Total Bilirubin (0.2-1.3) mg/dL AST (14-36) IU/L ALT (9-52) IU/L Alkaline Phosphatase (38-126) U/L Total Protein (6.3-8.2) g/dL Albumin (3.5-5.0) g/dL Globulin (1.7-4.1) g/dL Albumin/Globulin Ratio (1.0-2.8) Lipase (23-300) U/L Monoscreen Negative (Negative) Point of care testing: Urine Dip Bedside Urine Glucose Negative Bedside Urine Bilirubin - Negative Bedside Urine Ketone - Negative Urine Specific [place] 1.010 Bedside Urine Occult Blood - Negative Bedside Urine pH 6.5 Bedside Urine Protein - Negative Bedside Urine Urobilinogen - Negative Bedside Urine Nitrite - Negative Bedside Urine Leukocytes - Negative Esterase Imaging Data CT scan - abdomen: Radiologist's impression: [address] [address] [address] Scan Report Signed Patient: Lisa Huizar MMR#: [id number] : 1970Acct:[id number] Age/Sex: 48 / FDate of Service: 01/25/19 Loc: ED Accession Number: [id number] Procedure: CT abdomen pelvis w con Ordering Provider: Thea Mesa P.A-C PROCEDURE: CT ABDOMEN PELVIS W CON INDICATIONS: worsening LQ pain, fever, bowel changes TECHNIQUE: After the administration of oral and intravenous contrast, 5 mm thick sections acquired from the diaphragms to the symphysis. 5 mm thick coronal and sagittal reformats were performed. For radiation dose reduction, the following was used: automated exposure control, adjustment of mA and/or kV according to patient size. COMPARISON: [facility], CT, IVP (ABD & PEL WWO CONTRAST), 05/15/2014, 16:24. [facility], US, US ABDOMEN LIMITED, 01/10/2019, 17:15. FINDINGS: Image quality: Excellent. ABDOMEN: Lung bases: Lung bases are clear. Heart size is normal. Solid organs: Liver is normal in size and enhancement. There is a 1.2 x 2.1 cm hypodense nodule in the inferior liver, unchanged in size from the last exam. On the comparison ultrasound, there is a hypoechoic mass compatible with a hepatic hemangioma in the same area. Gallbladder is normal. Biliary system is non-dilated. Pancreas enhances normally. Spleen is normal in size and enhancement. No adrenal nodules. Ki dneys are normal in size and enhancement, without hydronephrosis. Peritoneum and bowel: There is a large amount stool in colon. Stomach, small bowel, and colon loops are normal in caliber and wall thickness. The appendix is normal. No free fluid or air. Nodes and vessels: No retroperitoneal or mesenteric adenopathy. Aorta and inferior vena cava are normal in caliber. Miscellaneous: No ventral hernias. PELVIS: Genitourinary: Bladder wall thickness is normal. There is an intrauterine device. Ovaries are normal in size. Ovarian cysts are noted bilaterally. Miscellaneous: No inguinal hernias or adenopathy. Bones: No suspicious bony lesions. No vertebral body compression fractures. IMPRESSION: 1. A large amount of stool in colon. 2. A 1.2 x 2.1 cm low density nodule in the inferior liver, which is unchanged in size since 05/15/2014 and currently with ultrasound finding of a hepatic hemangioma in the same area. Dictated by: Karlos Miller M.D. on 01/25/2019 at 20:26 Approved by: Karlos Miller M.D. on 01/25/2019 at 20:33 <Yolis Gaston MD - Last Filed: 01/26/19 02:54> Lab Data Lab Results 01/25/19 01/25/19 01/25/19 Range/Units 18:30 18:30 18:30 WBC 14.8 H (4.5-11.0) X10^3/uL RBC 4.98 (4.0-5.2) X10^6/uL Hgb 14.2 (12.0-16.0) g/dL Hct 42.4 (36-46) % MCV 85.1 (80-100) fL MCH 28.4 (26-34) PG MCHC 33.4 (30-36) % RDW 13.5 (11.6-14.8) % Plt Count 281 (150-400) X10^3/uL Neut % (Auto) 64.8 (50-75) % Lymph % (Auto) 25.6 (25-40) % [place] % (Auto) 7.5 (3-14) % Eos % (Auto) 1.4 L (2-4) % Baso % (Auto) 0.7 (0-2) % Neut # (Auto) 9600 H (2182-9666) /uL Lymph # (Auto) 3800 (5725-9064) /uL [place] # (Auto) 1100 H (0-900) /uL Eos # (Auto) 200 (0-450) /uL Baso # (Auto) 100 (0-100) /uL Sodium 141 (137-145) mmol/L Potassium 4.7 (3.4-5.1) mmol/L Chloride 106 (98-107) mmol/L Carbon Dioxide 23 (22-32) mmol/L BUN 10 (7-17) mg/dL Creatinine 0.60 (0.52-1.04) mg/dL Estimated GFR > 60.0 (>60) mL/min BUN/Creatinine Ratio 16.7 (6-22) Glucose 77 (70-100) mg/dL Lactate 1.9 (0.7-2.1) mmol/L Calcium 9.4 (8.4-10.2) mg/dL Total Bilirubin 0.7 (0.2-1.3) mg/dL AST 27 (14-36) IU/L ALT 12 (9-52) IU/L Alkaline Phosphatase 69 (38-126) U/L Total Protein 8.3 H (6.3-8.2) g/dL Albumin 4.5 (3.5-5.0) g/dL Globulin 3.8 (1.7-4.1) g/dL Albumin/Globulin Ratio 1.2 (1.0-2.8) Lipase 124 (23-300) U/L Monoscreen (Negative) 01/25/19 Range/Units 18:30 WBC (4.5-11.0) X10^3/uL RBC (4.0-5.2) X10^6/uL Hgb (12.0-16.0) g/dL Hct (36-46) % MCV (80-100) fL MCH (26-34) PG MCHC (30-36) % RDW (11.6-14.8) % Plt Count (150-400) X10^3/uL Neut % (Auto) (50-75) % Lymph % (Auto) (25-40) % [place] % (Auto) (3-14) % Eos % (Auto) (2-4) % Baso % (Auto) (0-2) % Neut # (Auto) (5154-1264) /uL Lymph # (Auto) (1122-7683) /uL [place] # (Auto) (0-900) /uL Eos # (Auto) (0-450) /uL Baso # (Auto) (0-100) /uL Sodium (137-145) mmol/L Potassium (3.4-5.1) mmol/L Chloride (98-107) mmol/L Carbon Dioxide (22-32) mmol/L BUN (7-17) mg/dL Creatinine (0.52-1.04) mg/dL Estimated GFR (>60) mL/min BUN/Creatinine Ratio (6-22) Glucose (70-100) mg/dL Lactate (0.7-2.1) mmol/L Calcium (8.4-10.2) mg/dL Total Bilirubin (0.2-1.3) mg/dL AST (14-36) IU/L ALT (9-52) IU/L Alkaline Phosphatase (38-126) U/L Total Protein (6.3-8.2) g/dL Albumin (3.5-5.0) g/dL Globulin (1.7-4.1) g/dL Albumin/Globulin Ratio (1.0-2.8) Lipase (23-300) U/L Monoscreen Negative (Negative) Point of care testing: Urine Dip Bedside Urine Glucose Negative Bedside Urine Bilirubin - Negative Bedside Urine Ketone - Negative Urine Specific [place] 1.010 Bedside Urine Occult Blood - Negative Bedside Urine pH 6.5 Bedside Urine Protein - Negative Bedside Urine Urobilinogen - Negative Bedside Urine Nitrite - Negative Bedside Urine Leukocytes - Negative Esterase Discharge Plan Departure Patient Disposition: Home Clinical Impression: Constipation Qualifiers: Constipation type: unspecified constipation type Qualified Code(s): K59.00 - Constipation, unspecified Abdominal pain Qualifiers: Abdominal location: lower abdomen, unspecified Qualified Code(s): R10.30 - Lower abdominal pain, unspecified Discharge Date/Time: 01/25/19 21:05 Interventions: ED Discharge Assessment Last Done: 01/25/19 21:05 Instructions: DI for Constipation Activity Restrictions/Additional Instructions: Your testing today shows some severe constipation, but not any evidence of a b owel blockage or other acute surgical issue. You can cancel your scan scheduled for tomorrow, and please call Dr. Domínguez's office 1st thing in the morning to let them know you were seen here and arrange follow-up. Tonight, please start a ?cocktail?, with a dose of MiraLax mixed with 4-6 oz each of prune and apple juice along with a dose of liquid Maalox or Mylanta. Repeat that in the morning. Continue that daily until your bowels are moving regularly, then you can changed to plain MiraLax alone. You can continue your stool softeners, and you can also try a dose of castor oil if you wish since you picked that up already. You should return if you have new symptoms such as vomiting, or ac utely worsening pain or high fever. As we discussed, if you continue to have bowel symptoms after the constipation is better, you may need further testing, i.e. with colonoscopy. Dr. Domínguez can help you get set up for this. I suspect that using the hydrocodone/acetaminophen did not cause your symptoms since you your already having some pain and bowel changes when you started it, but it may have worsened or prolonged them. You should use it if needed for pain while we are helping the constipation with a bowel medicines. Please also take 800 mg of ibuprofen every 8 hours routinely as that may help with pain and help to minimize your need for the hydrocodone. Prescriptions: No Action hydrocodone-acetaminophen [[place]] 5-325 mg tablet 1 tab PO BEDTIME PRN (Reason: pain) Qty: 14 RF: 0 ciprofloxacin HCl [Cipro] 500 mg tablet 500 mg PO BID Qty: 30 RF: 0 multivitamin Tablet 1 tab PO DAILY RF: 0 Calcium 1 tab PO DAILY RF: 0 Fish Oil 1 cap PO DAILY RF: 0 Stool Softener 2 cap PO PRN PRN (Reason: Constipation) RF: 0 Vitamin B 1 cap PO DAILY RF: 0 ibuprofen 1 dose PO PRN PRN (Reason: Fever Or Pain) RF: 0 olviycuoxe-ofomrbxonvcdn-uzgp 50-325-40 mg tablet 1 tab PO PRN PRN (Reason: Migraine Headache) RF: 0 Referrals: Claudio Domínguez MD [Primary Care Provider] -
[2019-01-25] MEDS: KETOROLAC 60 MG/2 ML VIAL 30 MG IV (18:42)
[2019-01-25] MEDS: SODIUM CHLORIDE 0.9% 500 ML 1000 ML IV ×2 (18:44→19:28)
[2019-01-25 18:46] LABS: Add Manual Diff / Slide Review NO; Basophils Absolute Auto 100 /uL (0-100); Basophils Percent Auto 0.7 % (0-2); Eosinophils Absolute Auto 200 /uL (0-450); Eosinophils Percent Auto 1.4 % (2-4); Hematocrit 42.4 % (36-46); Hemoglobin 14.2 g/dL (12.0-16.0); Lymphocytes Absolute Auto 3800 /uL (1100-4500); Lymphocytes Percent Auto 25.6 % (25-40); Mean Corpuscular HGB Conc 33.4 % (30-36); Mean Corpuscular Hemoglobin 28.4 PG (26-34); Mean Corpuscular Volume 85.1 fL (80-100); Monocytes Absolute Auto 1100 /uL (0-900); Monocytes Percent Auto 7.5 % (3-14); Neutrophils Absolute Auto 9600 /uL (1500-7000); Neutrophils Percent Auto 64.8 % (50-75); Platelet Count 281 X10^3/uL (150-400); Red Blood Cell Count 4.98 X10^6/uL (4.0-5.2); Red Cell Distribution Width 13.5 % (11.6-14.8); White Blood Cell Count 14.8 X10^3/uL (4.5-11.0)
[2019-01-25 18:54] LABS: Monotest Negative (Negative)
[2019-01-25 18:57] LABS: Lactate (Lactic Acid) 1.9 mmol/L (0.7-2.1)
[2019-01-25 18:58] LABS: Alanine Aminotransferase 12 IU/L (9-52); Albumin 4.5 g/dL (3.5-5.0); Albumin Globulin Ratio 1.2 (1.0-2.8); Alkaline Phosphatase 69 U/L (38-126); Aspartate Aminotransferase 27 IU/L (14-36); BUN Creatinine Ratio 16.7 (6-22); Bilirubin Total 0.7 mg/dL (0.2-1.3); Blood Urea Nitrogen 10 mg/dL (7-17); Calcium 9.4 mg/dL (8.4-10.2); Carbon Dioxide 23 mmol/L (22-32); Chloride 106 mmol/L (98-107); Estimated Glomerular Filt Rate > 60.0 mL/min (>60); Globulin 3.8 g/dL (1.7-4.1); Glucose 77 mg/dL (70-100); HEMOLYSIS 84 (0-50); Lipase 124 U/L (23-300); Sodium 141 mmol/L (137-145); Total Protein 8.3 g/dL (6.3-8.2)
[2019-01-25 18:59] LABS: Potassium 4.7 mmol/L (3.4-5.1)
[2019-01-25 19:17] VITALS: BP 115/63; PULSE 75; RESP 13; O2SAT 100
[2019-01-25 20:31] VITALS: BP 102/62; PULSE 79; RESP 12; O2SAT 98
[2019-01-25] MEDS: HYDROCODONE/ACET 5/325 TABLET 2 TAB PO (20:54)
== END 2019-01-25 21:05 | disposition home or self-care (01) ==
PROVIDERS: Emergency Provider Internal Medicine; Family Provider Family Medicine; PCP Family Medicine
DX: K59.00 Constipation, unspecified (principal); R10.30 Lower abdominal pain, unspecified
CPT/HCPCS: 36591; 74177; 80053; 81003; 83605; 83690; 85025; 86318; 96361; 96374; 99283; 99285; J1885; Q9967

== ENCOUNTER 2019-01-26 05:04 | Emergency (ER) | payer OTHER, SELFPAY ==
[2019-01-26 05:10] VITALS: BP 118/68; PULSE 88; RESP 18; TEMP 36.6; O2SAT 97
--- NOTE | 2019-01-26 05:35 | ED_ITS ---
HPI - Abdominal Pain General Chief Complaint: Abdominal Pain Stated Complaint: constipation abdominal pain Time Seen by Provider: 01/26/19 05:12 Source: patient and family Mode of arrival: ambulatory Limitations: no limitations History of Present Illness HPI narrative: Patient returns to the emergency department after being seen yesterday evening for constipation. Patient states she took all the remedies at home, but has not been able have a bowel movement yet. She states she is having cramping pain throughout her abdomen, and that she feels as though there is hard stool stuck in the rectum. Patient states she cannot take it any longer, and does not want to leave the emergency department until she has had a bowel movement. Patient denies any vomiting, though she does feel nauseated. No fevers. Patient was seen yesterday in the emergency department for the same thing, and had a CT scan done, which showed copious stool in the colon. Labs were unremarkable. Patient states she has had some degree of constipation with the last couple weeks, but that it seems to be worse in the last couple days. Patient states her last bowel movement was 2 days ago. She states that she does not otherwise have chronic constipation and that generally, her bowel movements are quite regular. Related Data Home Medications Medication Instructions Recorded Confirmed Calcium 1 tab PO DAILY 01/25/19 01/25/19 Fish Oil 1 cap PO DAILY 01/25/19 01/25/19 Stool Softener 2 cap PO PRN PRN 01/25/19 01/25/19 Vitamin B 1 cap PO DAILY 01/25/19 01/25/19 ulvyycotly-igcbiqslushqx-iogm 1 tab PO PRN PRN 01/25/19 01/25/19 ibuprofen 1 dose PO PRN PRN 01/25/19 01/25/19 multivitamin 1 tab PO DAILY 01/25/19 01/25/19 Previous Rx's Medication Instructions Recorded ciprofloxacin 500 mg tablet 500 mg PO BID #30 tab 01/23/19 hydrocodone 5 mg-acetaminophen 325 1 tab PO BEDTIME PRN #14 tab 01/23/19 mg tablet Allergies Allergy/AdvReac Type Severity Reaction Status Date / Time Sulfa (Sulfonamide AdvReac Mild VOMITING Verified 01/23/19 10:28 Antibiotics) [SULFA (SULFONAMIDE ANTIBIOTICS)] Review of Systems Constitutional Denies chills, Denies fever(s), Denies lethargy and Denies weakness Eyes Denies change in vision, Denies eye discharge, Denies irritation and Denies loss of vision ENT Ears, Nose, Mouth, and Throat: Denies change in voice, Denies neck pain and Denies sore throat Cardiovascular Denies chest pain, Denies irregular heart rhythm, Denies lightheadedness, Denies palpitations, Denies dyspnea, Denies dyspnea on exertion and Denies orthopnea Respiratory Denies cough, Denies dyspnea, Denies dyspnea on exertion and Denies wheezing Gastrointestinal Gastrointestinal: Denies abdominal pain, Reports change in bowel habits (Constipation), Denies diarrhea, Denies nausea and Denies vomiting Genitourinary Denies hematuria, Denies flank pain, Denies urinary incontinence and Denies urinary urgency Musculoskeletal Denies neck pain Integumentary/Breasts Denies pruritus, Denies erythema, Denies rash and Denies wounds Neurologic Denies confusion, Denies loss of vision and Denies weakness Psychiatric Denies anxiety, Denies confusion, Denies depression, Denies homicidal ideation and Denies suicidal ideation Endocrine Denies palpitations Hematologic/Lymphatic Denies easy bruising Allergic/Immunologic Denies wheezing FORMERLY [facility] Medical History Adjustment disorder (Chronic) Asthma (Chronic) CTS (carpal tunnel syndrome) (Chronic 1998) Migraines (Chronic 1986) Painful menstrual periods (Chronic 2005) Abnormal Pap smear of cervix (Resolved) Acne (Resolved 2010) Chicken pox (Resolved 1973) Foot fracture (Resolved 1987) Ovarian cyst (Resolved 2002) Surgical History Anesthesia (Resolved) Status post laparoscopy (Resolved 2002) Family History Father Age: 68 Meningitis spinal Grandmother High cholesterol COPD (chronic obstructive pulmonary disease) Obesity Mother Age: 66 Cervical cancer High cholesterol Grandfather Pancreatic cancer Grandmother Mental health problem Grandfather Heart attack Social History Smoking Status: Never smoker Family History Father Age: 68 Meningitis spinal Grandmother High cholesterol COPD (chronic obstructive pulmonary disease) Obesity Mother Age: 66 Cervical cancer High cholesterol Grandfather Pancreatic cancer Grandmother Mental health problem Grandfather Heart attack Social History Smoking Status: Never smoker Exam Initial Vital Signs Initial Vital Signs: Vital Signs Temperature 97.8 F 01/26/19 05:10 Pulse Rate 88 01/26/19 05:10 Respiratory Rate 18 01/26/19 05:10 Blood Pressure 118/68 01/26/19 05:10 Pulse Oximetry 97 01/26/19 05:10 Const General: cooperative and well developed Nutritional Appearance: well nourished Orientation: alert, awake, oriented x3 and not confused Other: Patient is crying. HENMT Head: normocephalic and atraumatic Ears: external ears normal Nose: external nose normal and No nasal discharge Face and sinus: face symmetric and No dry mucous membranes Mouth: oral mucosae normal and moist mucous membranes Teeth and gingiva: dentition normal Eyes General: appearance normal, both eyes and all related structures Eyelids: eyelids normal Conjunctivae: conjunctivae normal Sclera: sclerae normal Pupils: PERRL EOM: EOM intact bilaterally Neck Neck: normal visual inspection, trachea midline, No lymphadenopathy, No midline deformity and No JVD Lymphatic: No lymphedema Chest Chest: normal inspection of the chest Resp Effort & Inspection: normal respiratory effort, able to speak in complete sentences, no respiratory distress and no use of accessory muscles Auscultation: clear to auscultation bilaterally, no rales, no rhonchi and no wheezes Cardio Rate: regular rate Rhythm: regular rhythm Heart Sounds: no click, no gallops, no murmurs and no rubs Pulses: normal peripheral pulses GI Inspection: non-distended Palpation: soft, no hepatosplenomegaly, No guarding, No pulsatile mass and tender (Mild, diffuse lower abdominal) Auscultation: normal bowel sounds Rectal Exam: visual inspection normal, normal sphincter tone and fecal impaction (Moderate) Back/Spine/Pelvis Back: No CVA tenderness Cervical Spine: cervical ROM normal and No pain with cervical ROM Thoracic/Lumbar Spine: thoracic and lumbar spine normal to inspection Skin General: no rashes or lesions noted, No jaundice and No petechiae Neuro General: alert, oriented x3, gait normal and no focal motor deficits Speech: speech normal Extrem General: full ROM, no clubbing, cyanosis or edema, no pedal edema and no calf tenderness Psych Appearance: well kempt Mental Status: mental status grossly normal Attitude: cooperative Thought Content: normal and suicidality Judgment: judgment good Course Course Narrative: I reviewed the patient's visit records from her ED visit yesterday. I discussed with the patient that I can try disimpact in her digitally, or we can start with an enema. The patient deliberated for quite some time about which she would rather do, but ultimately opted for the enema. Enema was performed, and patient evacuated a large amount of stool. Patient was found to be feeling much much better, and I felt she was stable for discharge home. We have discussed eating a high-fiber diet. We have discussed home prevention of constipation and management of the symptoms. We have also discussed the usual indications for return. Vital Signs - 8 hr 01/26/19 05:10 Temperature 97.8 F Pulse Rate 88 Respiratory Rate 18 Blood Pressure 118/68 Pulse Oximetry 97 MDM - Abdominal Pain Medical Records Attestation: I reviewed the patient's medical records. Discharge Plan Departure Patient Disposition: Home Clinical Impression: Constipation Qualifiers: Constipation type: unspecified constipation type Qualified Code(s): K59.00 - Constipation, unspecified Instructions: DI for Constipation Prescriptions: No Action hydrocodone-acetaminophen [[place]] 5-325 mg tablet 1 tab PO BEDTIME PRN (Reason: pain) Qty: 14 RF: 0 ciprofloxacin HCl [Cipro] 500 mg tablet 500 mg PO BID Qty: 30 RF: 0 multivitamin Tablet 1 tab PO DAILY RF: 0 Calcium 1 tab PO DAILY RF: 0 Fish Oil 1 cap PO DAILY RF: 0 Stool Softener 2 cap PO PRN PRN (Reason: Constipation) RF: 0 Vitamin B 1 cap PO DAILY RF: 0 ibuprofen 1 dose PO PRN PRN (Reason: Fever Or Pain) RF: 0 tdpivfynyz-vcxrfoouyijaz-zmcz 50-325-40 mg tablet 1 tab PO PRN PRN (Reason: Migraine Headache) RF: 0 Referrals: Claudio Domínguez MD [Primary Care Provider] -
[2019-01-26 06:56] VITALS: BP 118/57; PULSE 85; RESP 14; O2SAT 99
== END 2019-01-26 06:56 | disposition home or self-care (01) ==
PROVIDERS: Emergency Provider Emergency Medicine; Family Provider Family Medicine; PCP Family Medicine
DX: K59.00 Constipation, unspecified (principal)
CPT/HCPCS: 99283

== ENCOUNTER → 2019-02-16 08:33 | Outpatient (CLI) | payer OTHER, SELFPAY ==
[2019-02-16 08:37] LABS: RBC Urine None Seen (0-5/HPF); WBC Urine None Seen (0-5/HPF)
[2019-02-16 09:21] LABS: Appearance Urine UA CLEAR; Bilirubin Urine UA NEGATIVE (NEGATIVE); Color Urine UA YELLOW; Glucose Urine UA NEGATIVE (Negative); Ketones Urine UA NEGATIVE (NEGATIVE); Leukocyte Esterase Urine UA NEGATIVE (NEGATIVE); Nitrite Urine UA NEGATIVE (Negative); Occult Blood Urine UA NEGATIVE (Negative); Protein Urine UA NEGATIVE (Negative); Urobilinogen Urine UA 0.2 E.U./dL (0.2); pH Urine UA 7.5 (4.5-8.0)
[2019-02-16 09:50] LABS: Bacteria Urine Occasional (0-1); Culture Indicated Urine Cult Not Indicated; Squamous Epithelial Cell Urine 0-1 /HPF (0-5/HPF)
== END ==
PROVIDERS: PCP Family Medicine; Visit Provider Family Medicine
DX: N23 Unspecified renal colic (principal); Z87.440 Personal history of urinary (tract) infections
CPT/HCPCS: 81001

== ENCOUNTER 2019-02-22 14:47 | Day surgery (SDC) | payer OTHER, SELFPAY ==
[2019-02-22] VITALS (7 sets, daily range): BP systolic 91–108; BP diastolic 60–68; PULSE 56–77; RESP 11–16; TEMP 36.2–37.4; O2SAT 97–100; BMI 23.1
--- NOTE | 2019-02-22 15:08 | PM.PREOP ---
Pre-operative Note Interval Note History & Physical reviewed/Exam performed by Physician: Yes Changes to H&P: No ASA Class (for procedural sedation): II
[2019-02-22] MEDS: SODIUM CHLORIDE 0.9% 1,000 ML 200 ML IV (15:20)
--- NOTE | 2019-02-22 16:11 | PM.OP.ENDO ---
Operative Date/Time/Diagnoses Date of procedure: 02/22/19 Time of procedure: 16:11 Pre-op diagnosis: Abdominal Pain, Constipation Post-op diagnosis: same Procedure & Clinicians Study performed: Diagnostic Colonscopy Same procedure as scheduled: Yes Indications: 48yo F with over a month of new onset abdominal pain and constipation. Surgeon: Stacey Hernandez Procedure Notes SCOAP/Timeout: 0 Procedure in detail: After obtaining informed consent, the patient was brought to the GI suite and placed in the left lateral decubitus position on the examination table. After placement of appropriate monitors, the patient was given incremental doses of Versed and Fentanyl until an appropriate level of sedation was achieved. A time out was held per SCOAP protocol. A digital rectal examination was performed and did not reveal any masses or obstructing lesions. The pediatric colonoscope was gently passed into the patient's anus and the entire colon navigated to the level of the cecum with some difficulty due to tight flexures. Prep was adequate. Once in the cecum, the scope was slowly withdrawn being sure to go before and beyond all mucosal folds and prominences as able to get a thorough examination. No masses or polyps are noted. Other findings include mild scattered diverticulosis. At the level of the rectal vault, the scope was retroflexed and the internal anal canal was examined. The scope was straightened and air aspirated from the colon. The instrument was removed from the patient's body and the procedure was concluded. The patient was allowed to awaken from sedation without difficulty and taken to the post-anesthesia care unit in good condition. Scope withdrawal time: 13 min Sedation minutes: 39 Findings: diverticulosis (scattered, mild) Specimen(s): none sent Complications: none Impression: 1. Mild scattered diverticulosis 2. Tortuous colon with tight flexures 3. Poor tolerance with high medication requirements Recommendations: Colonscopy in 10 years and High fiber diet Follow up: weeks Disposition: PACU
[2019-02-22] MEDS: MIDAZOLAM 5 MG/5 ML VIAL IV (16:14)
[2019-02-22] MEDS: fentaNYL 250 MCG/5 ML INJ IV (16:15)
--- NOTE | 2019-02-22 16:26 | SUR.PHASEI ---
bedside report given to ALMA Apodaca at this time. pt in stable condition, vss. Transferred care of pt to ALMA Apodaca at this time.
--- NOTE | 2019-02-22 16:29 | SUR.PHASEI ---
Assumed care. Abd soft. Denied pain
--- NOTE | 2019-02-22 16:51 | SUR.PHASEII ---
Pt mildly obtunded but awake. SO at bedside. Call light within reach. Po intake provided.
== END 2019-02-22 17:32 | disposition home or self-care (01) ==
LOC: ENDO 14:48
PROVIDERS: PCP Family Medicine; Visit Provider Surgery
PROC: 0DJD8ZZ Inspection of Lower Intestinal Tract, Via Natural or Artificial Opening Endoscopic (ICD-10-PCS; CPT 45378; principal; 2019-02-22 16:00)
DX: R10.9 Unspecified abdominal pain (principal); K59.00 Constipation, unspecified; J45.909 Unspecified asthma, uncomplicated; K57.30 Diverticulosis of large intestine without perforation or abscess without bleeding
CPT/HCPCS: 45378; 99152; 99153; J2250; J3010

== ENCOUNTER → 2019-05-01 13:39 | Outpatient (CLI) | payer OTHER, SELFPAY | PROVIDERS: PCP Family Medicine; Visit Provider Family Medicine | DX: R10.9 Unspecified abdominal pain (principal) | CPT/HCPCS: 87086 ==

== ENCOUNTER 2019-05-13 08:57 | Emergency (ER) | payer OTHER, SELFPAY ==
[2019-05-13 09:09] VITALS: BP 102/59; PULSE 89; RESP 16; TEMP 36.4; O2SAT 98; BMI 22.3
--- NOTE | 2019-05-13 09:13 | ED.BACK ---
HPI - Back Pain/Injury General Chief Complaint: Back Pain/Injury Stated Complaint: lower back spasms x1 day Time Seen by Provider: 05/13/19 08:59 Source: patient Mode of arrival: Ambulatory Limitations: no limitations History of Present Illness HPI Narrative: 48-year-old female here for evaluation of left lower back and mid back muscle spasms. States the symptoms started yesterday. She states this side was ?tight? yesterday. She did admit to doing quite a bit of yard work. Woke up this morning with worsening pain and spasms in the side. No urinary symptoms. Does have times where the pain is worse with palpation took some ibuprofen this morning without any improvement. Took a cyclobenzaprine last evening without much improvement. Related Data Home Medications Medication Instructions Recorded Confirmed Calcium 1 tab PO DAILY 01/25/19 05/03/19 Fish Oil 1 cap PO DAILY 01/25/19 05/03/19 Vitamin B 1 cap PO DAILY 01/25/19 05/03/19 multivitamin 1 tab PO DAILY 01/25/19 05/03/19 prochlorperazine maleate 5 mg 5 mg PO BID PRN 02/21/19 05/03/19 tablet Previous Rx's Medication Instructions Recorded waxbrrxknh-rudfzskgeqorn-vbpfbjsm 1 tab PO PRN PRN #30 tab 03/13/19 50 mg-325 mg-40 mg tablet ondansetron 4 mg disintegrating 4 mg PO Q8-12H PRN #14 tab 03/23/19 tablet rizatriptan 10 mg disintegrating See Rx Instructions PO .COMPLEX 03/23/19 tablet #10 tab erythromycin 5 mg/gram (0.5 %) eye 1 cm EYE-BOTH Q8H #1 gram 05/03/19 ointment sodium,potassium,mag sulfates 17.5 180 ml PO ONCE #177 ml 05/03/19 gram-3.13 gram-1.6 gram oral soln diazepam [Valium] 5 mg PO BID PRN #4 tab 05/13/19 Allergies Allergy/AdvReac Type Severity Reaction Status Date / Time Sulfa (Sulfonamide AdvReac Mild VOMITING Verified 05/13/19 09:09 Antibiotics) [SULFA (SULFONAMIDE ANTIBIOTICS)] Review of Systems Constitutional Constitutional: Denies fever(s) Cardiovascular Cardiovascular: Denies chest pain and Denies dyspnea Respiratory Respiratory: Denies dyspnea Gastrointestinal Gastrointestinal: Denies abdominal pain Musculoskeletal Musculoskeletal: Reports back pain, Denies myalgias and Denies arthralgias Integumentary/Breasts Skin/Breast: Denies rash Neurologic Neurologic: Denies behavioral changes Psychiatric Psychiatric: Denies behavioral changes Hematologic/Lymphatic Hematologic/Lymphatic: Denies easy bleeding and Denies easy bruising Patient History Medical/Surgical History Medical History Abnormal Pap smear of cervix (Resolved) Acne (Resolved 2010) Adjustment disorder (Chronic) Asthma (Chronic) Chicken pox (Resolved 1973) CTS (carpal tunnel syndrome) (Chronic 1998) Foot fracture (Resolved 1987) Migraines (Chronic 1986) Ovarian cyst (Resolved 2002) Painful menstrual periods (Chronic 2005) Family/Social History Social History marital status: household members: spouse and children occupational status: employed Smoking Status: Never smoker alcohol intake: current substance use type: does not use alcohol intake frequency: 0-2 drinks per day Substance Use Type: does not use Exam Initial Vital Signs Initial Vital Signs: Vital Signs Temperature 97.5 F L 05/13/19 09:09 Pulse Rate 89 05/13/19 09:09 Respiratory Rate 16 05/13/19 09:09 Blood Pressure 102/59 L 05/13/19 09:09 Pulse Oximetry 98 05/13/19 09:09 HENMT Head: normal to inspection and normocephalic Resp Effort & Inspection: normal respiratory effort Auscultation: clear to auscultation bilaterally Cardio Rate: regular rate Back/Spine/Pelvis Cervical Spine: No collar present Thoracic/Lumbar Spine: paraspinal tenderness (Lumbar region) and No lumbar spinal tenderness Skin Lesions: no lesions Rashes: no rashes Neuro General: alert, awake and oriented x3 Cognition: normal cognition Speech: speech normal Extrem General: normal to inspection and capillary refill normal Psych Appearance: grossly normal and well kempt Course Orders Ordered: Discontinued Medications Diazepam (Valium) 5 mg PO NOW ONE Stop: 05/13/19 09:13 Last Admin: 05/13/19 09:17 Dose: 5 mg Documented by: MANDA Ketorolac Tromethamine (Toradol) 30 mg IM NOW ONE Stop: 05/13/19 09:13 Last Admin: 05/13/19 09:17 Dose: 30 mg Documented by: MANDA Vital Signs Vital signs: Vital Signs - 8 hr 05/13/19 09:09 Temperature 97.5 F L Pulse Rate 89 Respiratory Rate 16 Blood Pressure 102/59 L Pulse Oximetry 98 MDM - Back Pain/Injury MDM Narrative Medical decision making narrative: I do suspect that her symptoms are muscular in origin. She provided many sick uses a why she cannot take ibuprofen because of her GI issues. I did talk with her about pain medication and that this would be even more of a hit to her GI system. She did not specifically ask for pain medication. He did discuss the use of Tylenol. We did discuss other topical treatments such as lidocaine patches which she states she has at home. We also discussed the use of heat and ice and massage in light stretching. Will send home with a short course of Valium. She is going to contact her primary provider. She expressed understanding and agreement plan. Discharge Plan Departure Patient Disposition: Home Clinical Impression: Lumbar paraspinal muscle spasm Instructions: DI for Muscle Spasm Activity Restrictions/Additional Instructions: I feel that you can take Tylenol to help with your symptoms. Can also use the topical patches that you have at home. I also recommend heat/ice and also massage in light stretching. Take the medications as directed as needed. Contact your primary provider for follow-up. Prescriptions: New diazepam [Valium] 5 mg tablet 5 mg PO BID PRN (Reason: muscle spasm) Qty: 4 RF: 0 No Action erythromycin 5 mg/gram (0.5 %) ointment 1 cm EYE-BOTH Q8H Qty: 1 RF: 0 Suprep Bowel Prep Kit 17.5-3.13-1.6 gram recon soln 180 ml PO ONCE Qty: 177 RF: 0 kraoxaualh-npdnzstpwyaxq-keye 50-325-40 mg tablet 1 tab PO PRN PRN (Reason: Migraine Headache) Qty: 30 RF: 0 prochlorperazine maleate 5 mg tablet 5 mg PO BID PRN (Reason: Nausea) RF: 0 multivitamin Tablet 1 tab PO DAILY RF: 0 Calcium 1 tab PO DAILY RF: 0 Fish Oil 1 cap PO DAILY RF: 0 Vitamin B 1 cap PO DAILY RF: 0 rizatriptan 10 mg tablet,disintegrating See Rx Instructions PO .COMPLEX Qty: 10 RF: 2 ondansetron 4 mg tablet,disintegrating 4 mg PO Q8-12H PRN (Reason: nausea and vomiting) Qty: 14 RF: 2 Referrals: Claudio Domínguez MD [Primary Care Provider] -
[2019-05-13] MEDS: diazePAM 5 MG TABLET PO (09:17)
[2019-05-13] MEDS: KETOROLAC 60 MG/2 ML VIAL 30 MG IM (09:17)
== END 2019-05-13 10:32 | disposition home or self-care (01) ==
PROVIDERS: Emergency Provider Emergency Medicine; PCP Family Medicine
DX: M62.830 Muscle spasm of back (principal)
CPT/HCPCS: 96372; 99282; 99283; J1885

== ENCOUNTER → 2019-06-05 14:45 | Outpatient (CLI) | payer OTHER, SELFPAY ==
--- NOTE | 2019-06-05 14:51 | DIET.PN ---
Dietary Progress Note Assessment: 48y F with recent hx of considerable stress in December, preceded by new chronic constipation and epigastric px. Pt reports having new fear that foods are going to affect her digestion. stopped Vitamin E supp after using daily for past 15y during that time. has been eating more plant based diet 5y ago r/t son is vegetarian leaning and picky eater. Seeing GI specialist in [facility] 06/22/19 20 min after eating pasta, white rice, flour tortillas epigastric px Eats real saurkraut and yogurt regularly for Probiotics taking 2 stool softeners in am and pm Usual intake: brown rice pilaf, beans, yogurt c bran, PRO foods (godoy, fish) at work drinks lucy green tea, drinks water regularly Physical Activity: cele chi once per week but cancelled r/t money and time walks c mom 2hr on Tuesday nights once per week works in 1/2 acre yard on weekends has treadmill desk but hasn't used since December HT: 5'4 WT: does not track Nutrition Diagnosis: chronic constipation r/t suspected drug nutrient interactions (zofran and vicodin for migraines) aeb pt goes 2 days without a BM after taking medications for migraines, pt has reduced physical activity r/t new considerable stress in home and work life. Interventions: Pt eats high fiber diet and is adequately hydrated. Pt seeing GI specialist at the end of month, possible GI conditions include Celiac, IBS-c though this RD suspects DNI related to constipating effect of several medications pt is on. Monitoring/Evaluations: pt will schedule f/u if diagnosed c GI condition
== END ==
PROVIDERS: PCP Family Medicine; Visit Provider Family Medicine
DX: K59.00 Constipation, unspecified (principal); R10.13 Epigastric pain; Z71.3 Dietary counseling and surveillance
CPT/HCPCS: 97802

== ENCOUNTER → 2019-07-16 15:49 | Outpatient (CLI) | payer OTHER, SELFPAY ==
[2019-07-16 17:38] LABS: TSH w/ Reflex to FT4 1.76 uIU/mL (0.47-4.68)
== END ==
PROVIDERS: PCP Family Medicine; Visit Provider Family Medicine
DX: R19.4 Change in bowel habit (principal); K59.00 Constipation, unspecified
CPT/HCPCS: 36415; 83516; 84443

== ENCOUNTER → 2019-10-15 15:51 | Outpatient (CLI) | payer OTHER, SELFPAY ==
[2019-10-15 17:37] LABS: Influenza A - CEPHEID Flu A NEGATIVE (NEGATIVE); Influenza B - CEPHEID Flu B NEGATIVE (NEGATIVE)
[2019-10-23 01:36] LABS: COVID19 Sendout Not Detected (Not Detected)
== END ==
PROVIDERS: PCP Family Medicine; Visit Provider Family Medicine
DX: R05 Cough (principal)
CPT/HCPCS: 87502; 87635

== ENCOUNTER → 2020-02-28 08:33 | Outpatient (CLI) | payer OTHER, SELFPAY ==
--- NOTE | 2020-02-28 08:34 | DI.MRI.S_ITS ---
PROCEDURE: MR SHOULDER LT WO CON INDICATIONS: progressing left shoulder pain TECHNIQUE: Noncontrast oblique coronal T2 fast spin echo with fat saturation, oblique sagittal T1 spin echo and T2 fast spin echo with fat saturation, axial T1 spin echo and T2 fast spin echo with fat saturation through the shoulder. COMPARISON: [facility], MR, MR SHOULDER RT WO CON, 09/01/2018, 14:27. FINDINGS: Image quality: Excellent. Rotator cuff: Tendinosis and low-grade articular and bursal surface partial thickness tear involving distal supraspinatus at its insertion on the humeral head is seen extending to musculotendinous junction. Distal infraspinatus tendon is intact. Distal subscapularis tendon is intact. No full-thickness rotator cuff tendon rupture. Sagittal images demonstrate no significant muscle atrophy. Bones and bursae: No bone marrow contusions or fractures. Mild acromioclavicular joint osteoarthritic changes are seen. Downward osteophyte formation is noted depressing the musculotendinous junction of supraspinatus. No pathologic subacromial-subdeltoid or subcoracoid bursal fluid is present. Capsule and soft tissues: In the absence of intra-articular contrast, there is suggestion of focal superior anterior labral tear at 12 to 1 o'clock position.. The glenohumeral ligaments appear intact. The long head of the biceps tendon demonstrates normal location and morphology. The rotator interval appears normal, without fibrosis. The coracohumeral ligament is normal in thickness. IMPRESSION: 1. Tendinosis and low-grade articular and bursal surface partial thickness tear involving distal supraspinatus extending to musculotendinous junction. Distal infraspinatus and subscapularis tendons are intact. 2. Mild acromioclavicular joint osteoarthritis. No fracture or dislocation. No marrow edema. 3. Finding is suspicious for focal superior anterior labral tear at 12 to 1 o'clock position. Dictated by: Toñito Gil M.D. on 02/28/2020 at 9:23 Approved by: Toñito Gil M.D. on 02/28/2020 at 9:35
== END ==
PROVIDERS: PCP Family Medicine; Referring Provider Family Medicine; Visit Provider Family Medicine
DX: M25.512 Pain in left shoulder (principal); M75.112 Incomplete rotator cuff tear or rupture of left shoulder, not specified as traumatic; M19.012 Primary osteoarthritis, left shoulder
CPT/HCPCS: 73221

== ENCOUNTER → 2020-04-22 11:39 | Outpatient (CLI) | payer OTHER, SELFPAY ==
--- NOTE | 2020-04-22 | DI.MG.S_ITS ---
BILATERAL DIGITAL SCREENING MAMMOGRAM 3D/2D WITH CAD: 04/22/2020 CLINICAL: Routine screening. Comparison is made to exams dated: 10/30/2018 mammogram, 10/28/2017 mammogram, and 10/11/2016 mammogram - [facility]. The tissue of both breasts is extremely dense, which lowers the sensitivity of mammography. Current study was also evaluated with a Computer Aided Detection (CAD) system. There are grouped fine calcifications in the right breast middle depth lateral region seen on the craniocaudal view only. No other significant masses, calcifications, or other findings are seen in either breast. There has been no significant interval change. IMPRESSION: INCOMPLETE: NEEDS ADDITIONAL IMAGING EVALUATION The grouped fine calcifications in the right breast are indeterminate. A diagnostic mammogram is recommended. This exam was interpreted at Station ID: [id number]. NOTE: For mammograms, a report in lay terms will be sent to the patient. Approximately 15% of breast malignancies will not be visualized mammographically. In the management of a palpable breast mass, a negative mammogram must not discourage biopsy of a clinically suspicious lesion. Electronically Signed By: Ulysses Hdz M.D., jr/mana:04/22/2020 12:08:25 copy to: NAHED POZO letter sent: Additional Imaging Needed ACR BI-RADS Category 0: Incomplete [id number]
== END ==
PROVIDERS: PCP Family Medicine; Referring Provider Family Medicine; Visit Provider Family Medicine
DX: Z12.31 Encounter for screening mammogram for malignant neoplasm of breast (principal)
CPT/HCPCS: 77063; 77067

== ENCOUNTER → 2020-04-24 08:20 | Outpatient (CLI) | payer OTHER, SELFPAY ==
[2020-04-24 09:28] LABS: Add Manual Diff / Slide Review NO; Basophils Absolute Auto 100 /uL (0-100); Basophils Percent Auto 0.7 % (0-2); Eosinophils Absolute Auto 200 /uL (0-450); Eosinophils Percent Auto 1.9 % (2-4); Hematocrit 40.6 % (36-46); Hemoglobin 13.7 g/dL (12.0-16.0); Lymphocytes Absolute Auto 2800 /uL (1100-4500); Lymphocytes Percent Auto 29.9 % (25-40); Mean Corpuscular HGB Conc 33.7 % (30-36); Mean Corpuscular Hemoglobin 29.5 PG (26-34); Mean Corpuscular Volume 87.6 fL (80-100); Monocytes Absolute Auto 600 /uL (0-900); Monocytes Percent Auto 6.2 % (3-14); Neutrophils Absolute Auto 5600 /uL (1500-7000); Neutrophils Percent Auto 61.3 % (50-75); Platelet Count 248 X10^3/uL (150-400); Red Blood Cell Count 4.63 X10^6/uL (4.0-5.2); Red Cell Distribution Width 13.6 % (11.6-14.8); White Blood Cell Count 9.2 X10^3/uL (4.5-11.0)
[2020-04-24 10:01] LABS: Alanine Aminotransferase 16 IU/L (<35); Albumin Globulin Ratio 1.3 (1.0-2.8); Alkaline Phosphatase 81 U/L (38-126); Aspartate Aminotransferase 23 IU/L (14-36); BUN Creatinine Ratio 15.5 (6-22); Bilirubin Total 0.6 mg/dL (0.2-1.3); Blood Urea Nitrogen 9 mg/dL (7-17); Calcium 9.1 mg/dL (8.4-10.2); Carbon Dioxide 28 mmol/L (22-32); Chloride 102 mmol/L (98-107); Cholesterol 196 mg/dL (140-199); Estimated Glomerular Filt Rate > 60.0 mL/min (>60); Glucose 92 mg/dL (70-100); HDL Cholesterol 57 mg/dL (40-60); HEMOLYSIS < 15 (0-50); LDL Cholesterol Calculated 123 mg/dL (<100); Potassium 4.6 mmol/L (3.4-5.1); Sodium 137 mmol/L (137-145); Triglycerides 81 mg/dL (35-150)
[2020-04-24 10:33] LABS: Thyroid Stimulating Hormone 2.16 uIU/mL (0.47-4.68)
== END ==
PROVIDERS: PCP Family Medicine; Referring Provider Family Medicine; Visit Provider Family Medicine
DX: Z13.220 Encounter for screening for lipoid disorders (principal); Z13.29 Encounter for screening for other suspected endocrine disorder; Z13.6 Encounter for screening for cardiovascular disorders
CPT/HCPCS: 36415; 80053; 80061; 84443; 85025

== ENCOUNTER → 2020-08-11 17:01 | Outpatient (CLI) | payer OTHER, SELFPAY ==
[2020-08-11 17:11] LABS: Bacteria Urine None Seen
[2020-08-11 18:34] LABS: Appearance Urine UA CLEAR; Bilirubin Urine UA NEGATIVE (NEGATIVE); Color Urine UA YELLOW; Glucose Urine UA NEGATIVE (Negative); Ketones Urine UA NEGATIVE (NEGATIVE); Leukocyte Esterase Urine UA NEGATIVE (NEGATIVE); Nitrite Urine UA NEGATIVE (Negative); Occult Blood Urine UA TRACE-LYSED (Negative); Protein Urine UA NEGATIVE (Negative); Specific Gravity Urine UA <=1.005 (1.000-1.035); Urobilinogen Urine UA 0.2 E.U./dL (0.2)
[2020-08-11 18:42] LABS: pH Urine UA 6.5 (4.5-8.0)
[2020-08-11 18:53] LABS: Culture Indicated Urine Cult Not Indicated; RBC Urine 0-1/HPF (0-5/HPF); Squamous Epithelial Cell Urine 0-1 /HPF (0-5/HPF); WBC Urine 0-1/HPF (0-5/HPF)
== END ==
PROVIDERS: PCP Family Medicine; Referring Provider Student in an Organized Health Care Education/Training Program; Visit Provider Student in an Organized Health Care Education/Training Program
DX: R30.0 Dysuria (principal)
CPT/HCPCS: 81001

== ENCOUNTER → 2020-08-22 16:08 | Outpatient (CLI) | payer OTHER, SELFPAY ==
--- NOTE | 2020-08-22 16:09 | DI.US.S_ITS ---
PROCEDURE: US RENAL COMPLETE INDICATIONS: Urinary retention TECHNIQUE: Real-time scanning was performed of the kidneys and bladder, with image documentation. COMPARISON: [facility], US, US ABDOMEN LIMITED, 01/10/2019, 17:15. [facility], CT, CT ABDOMEN PELVIS W CON, 01/25/2019, 19:35. FINDINGS: Kidneys: Kidneys are normal in size. Right kidney measures 10.3 cm long; left kidney measures 10.8 cm long. Right renal cortical thickness is 1.3 cm; left renal cortical thickness is 1.6 cm. Renal cortical echotexture is normal. No hydronephrosis or nephrolithiasis. No suspicious solid mass lesions. Bladder: Pre-void bladder volume is 588 mL. Post-void residual is 14 mL. Pre-void images demonstrate no intraluminal masses or stones. On pre-void images, both ureteral jets are noted with color Doppler interrogation. (Of note, ureteral jets may not be detectable in up to 25% of cases due to insufficient differences in specific gravity between ureteral and bladder urine). Miscellaneous: No free pelvic fluid. IMPRESSION: Small postvoid residual, 14 cc. Negative for hydronephrosis. Dictated by: Juliocesar Zafar M.D. on 08/22/2020 at 15:38 Approved by: Juliocesar Zafar M.D. on 08/22/2020 at 15:40
== END ==
PROVIDERS: PCP Student in an Organized Health Care Education/Training Program; Referring Provider Student in an Organized Health Care Education/Training Program; Visit Provider Student in an Organized Health Care Education/Training Program
DX: R33.9 Retention of urine, unspecified (principal)
CPT/HCPCS: 76770

== ENCOUNTER → 2020-09-03 12:27 | Outpatient (CLI) | payer OTHER, SELFPAY ==
[2020-09-03 13:24] LABS: COVID19 -Nasal RAPID Negative (Negative)
== END ==
PROVIDERS: PCP Student in an Organized Health Care Education/Training Program; Visit Provider Physician Assistant
DX: Z20.822 Contact with and (suspected) exposure to COVID-19 (principal)
CPT/HCPCS: 87635

== ENCOUNTER → 2020-12-13 10:02 | Outpatient (CLI) | payer OTHER, SELFPAY ==
--- NOTE | 2020-12-13 10:02 | DI.MRI.S_ITS ---
PROCEDURE: MR SHOULDER LT WO CON INDICATIONS: Increasing left shoulder pain TECHNIQUE: Noncontrast oblique coronal T2 fast spin echo with fat saturation, oblique sagittal T1 spin echo and T2 fast spin echo with fat saturation, axial T1 spin echo and T2 fast spin echo with fat saturation through the shoulder. COMPARISON: [facility], MR, MR SHOULDER LT WO CON, 02/28/2020, 8:48. FINDINGS: Image quality: Excellent. Rotator cuff: There is mild diffuse T2 signal elevation within the supraspinatus and infraspinatus tendons at the humeral insertion site extending to the musculotendinous junction, indicating tendinopathy. Superimposed low-grade partial-thickness bursal surface tearing of the anterior and mid supraspinatus tendon at the humeral insertion site. Subscapularis, infraspinatus, and teres minor tendons are intact. No rotator cuff atrophy. Bones and bursae: No bone marrow contusions or fractures. There is mild subchondral T2 signal elevation within the posteroinferior glenoid, as before, consistent within it subchondral cyst. Moderate acromioclavicular joint degeneration. The acromion demonstrates conventional anatomy, without an os acromiale. No pathologic subacromial-subdeltoid or subcoracoid bursal fluid is present. Capsule and soft tissues: No change in undercutting of the anterosuperior glenoid labrum. The long head of the biceps tendon demonstrates normal location and morphology. The rotator interval appears normal, without fibrosis. The coracohumeral ligament is normal in thickness. IMPRESSION: 1. Supraspinatus tendinopathy with superimposed low-grade partial-thickness bursal surface tearing, as before. No full-thickness rotator cuff tear. 2. Acromioclavicular joint osteoarthritis. 3. No change in anterosuperior glenoid labral undercutting, suggestive of a tear. Dictated by: Keon Farr M.D. on 12/15/2020 at 8:45 Approved by: Keon Farr M.D. on 12/15/2020 at 8:47
== END ==
PROVIDERS: PCP Student in an Organized Health Care Education/Training Program; Referring Provider Student in an Organized Health Care Education/Training Program; Visit Provider Student in an Organized Health Care Education/Training Program
DX: M75.112 Incomplete rotator cuff tear or rupture of left shoulder, not specified as traumatic (principal); M19.012 Primary osteoarthritis, left shoulder
CPT/HCPCS: 73221

== ENCOUNTER → 2021-03-23 10:32 | Outpatient (CLI) | payer OTHER, SELFPAY | PROVIDERS: PCP Student in an Organized Health Care Education/Training Program; Referring Provider Student in an Organized Health Care Education/Training Program; Visit Provider Student in an Organized Health Care Education/Training Program | DX: M85.851 Other specified disorders of bone density and structure, right thigh (principal); Z78.0 Asymptomatic menopausal state; M27.9 Disease of jaws, unspecified; K92.9 Disease of digestive system, unspecified; Z82.62 Family history of osteoporosis | CPT/HCPCS: 77080 ==

== ENCOUNTER → 2021-06-09 17:13 | Outpatient (CLI) | payer OTHER, SELFPAY ==
--- NOTE | 2021-06-09 | DI.MG.S_ITS ---
BILATERAL DIGITAL SCREENING MAMMOGRAM 3D/2D WITH CAD: 06/09/2021 CLINICAL: Routine screening. Comparison is made to exams dated: 04/29/2020 mammogram - [facility], 04/22/2020 mammogram, 04/22/2020 mammogram, 10/30/2018 mammogram, and 10/28/2017 mammogram - [facility]. The tissue of both breasts is heterogeneously dense. This may lower the sensitivity of mammography. Current study was also evaluated with a Computer Aided Detection (CAD) system. There is a 2 cm oval mass in the right breast central to the nipple in the retroareolar region. This is increased in size. No other significant masses, calcifications, or other findings are seen in either breast. Right breast upper outer biopsy marker posterior depth. IMPRESSION: INCOMPLETE: NEEDS ADDITIONAL IMAGING EVALUATION The 2 cm oval mass in the right breast is indeterminate. Additional views with possible ultrasound are recommended. This exam was interpreted at Station ID: [id number]. NOTE: For mammograms, a report in lay terms will be sent to the patient. Approximately 15% of breast malignancies will not be visualized mammographically. In the management of a palpable breast mass, a negative mammogram must not discourage biopsy of a clinically suspicious lesion. Electronically Signed By: Keanu Montana M.D. slc/:06/10/2021 08:49:49 letter sent: Additional Imaging Needed ACR BI-RADS Category 0: Incomplete 3340F
== END ==
PROVIDERS: PCP Student in an Organized Health Care Education/Training Program; Referring Provider Student in an Organized Health Care Education/Training Program; Visit Provider Student in an Organized Health Care Education/Training Program
DX: Z12.31 Encounter for screening mammogram for malignant neoplasm of breast (principal)
CPT/HCPCS: 77063; 77067

== ENCOUNTER → 2021-07-10 09:25 | Outpatient (CLI) | payer OTHER, SELFPAY ==
--- NOTE | 2021-07-10 | DI.MG.S_ITS ---
UNILATERAL RIGHT DIGITAL DIAGNOSTIC MAMMOGRAM 3D/2D WITH ADDITIONAL VIEWS: 07/10/2021 CLINICAL: Additional evaluation requested from prior study. Comparison is made to exams dated: 06/09/2021 [facility], 05/07/2020 stereotactic biopsy, 04/29/2020 mammogram [facility], and 04/22/2020 [facility]. The tissue of right breast is heterogeneously dense. This may lower the sensitivity of mammography. There is a cluster of oval masses in the right breast central to the nipple in the retroareolar region. This is confirmed in today's additional views. One central to nipple has increased in size measuring approximately 2cm. No other significant masses or calcifications are seen in the breast. IMPRESSION: INCOMPLETE: NEEDS ADDITIONAL IMAGING EVALUATION The cluster of oval masses in the right breast most likely represents a cluster of cysts and is indeterminate. An ultrasound is recommended for further evaluation and is scheduled to immediately follow this examination. This exam was interpreted at Station ID: [id number]. NOTE: For mammograms, a report in lay terms will be sent to the patient. Approximately 15% of breast malignancies will not be visualized mammographically. In the management of a palpable breast mass, a negative mammogram must not discourage biopsy of a clinically suspicious lesion. Electronically Signed By: Ishmael Babb M.D. aty/:07/10/2021 10:43:44 ACR BI-RADS Category 0: Incomplete 3340F
--- NOTE | 2021-07-10 | DI.US.S_ITS ---
ULTRASOUND OF RIGHT BREAST: 07/10/2021 CLINICAL: Patient returns today to evaluate a focal asymmetry in the right breast. Comparison is made to exams dated: 07/10/2021 mammogram, 06/09/2021 mammogram - [facility], 05/07/2020 specimen, and 05/07/2020 stereotactic biopsy - [facility]. Color flow and real-time ultrasound of the right breast were performed. [place] scale images of the real-time examination were reviewed. There is a cluster of oval simple cysts in the right breast central to the nipple in the retroareolar region. This cluster of oval simple cysts is anechoic. This correlates with mammography findings. Color flow imaging demonstrates that there is no vascularity present. Largest simple cyst measures approximately 1.7 cm in size. IMPRESSION: BENIGN There is no sonographic evidence of malignancy. The cluster of oval simple cysts in the right breast is benign. A 1 year screening mammogram is recommended. Findings and recommendations were conveyed to the patient during today's evaluation. This exam was interpreted at Station ID: [id number]. Electronically Signed By: Ishmael Babb M.D. at/:07/10/2021 10:46:23 letter sent: Normal Exam Ultrasound BI-RADS: 2 Benign
== END ==
PROVIDERS: PCP Student in an Organized Health Care Education/Training Program; Referring Provider Student in an Organized Health Care Education/Training Program; Visit Provider Student in an Organized Health Care Education/Training Program
DX: R92.8 Other abnormal and inconclusive findings on diagnostic imaging of breast (principal); N60.01 Solitary cyst of right breast
CPT/HCPCS: 76642; 77065; G0279

== ENCOUNTER → 2022-06-21 13:22 | Outpatient (CLI) | payer OTHER, SELFPAY ==
--- NOTE | 2022-06-21 | DI.MG.S_ITS ---
BILATERAL DIGITAL SCREENING MAMMOGRAM 3D/2D WITH CAD: 06/21/2022 CLINICAL: Routine screening. Comparison is made to exams dated: 06/09/2021 mammogram, 04/22/2020 mammogram, 10/30/2018 mammogram, and 07/10/2021 mammogram - [facility]. Both breasts are heterogeneously dense, which may obscure small masses (category c / 51-75% glandular tissue). Current study was also evaluated with a Computer Aided Detection (CAD) system. There is a biopsy clip in the right breast. No significant masses, calcifications, or other findings are seen in either breast. There has been no significant interval change. IMPRESSION: NEGATIVE There is no mammographic evidence of malignancy. A 1 year screening mammogram is recommended. Based on the Tyrer Cuzick model (a risk assessment model) the patient's lifetime risk is 14.1% and her 10 year risk is 3.5%. According to the ACR, ACS, and NCCN guidelines, an annual breast MRI exam along with mammogram is recommended if the patient's lifetime risk is 20% or greater. This exam was interpreted at Station ID: [id number]. NOTE: For mammograms, a report in lay terms will be sent to the patient. Approximately 15% of breast malignancies will not be visualized mammographically. In the management of a palpable breast mass, a negative mammogram must not discourage biopsy of a clinically suspicious lesion. Electronically Signed By: Evangelista vidal/mana:06/21/2022 14:28:26 letter sent: Normal Exam ACR BI-RADS Category 1: Negative [id number]
== END ==
PROVIDERS: PCP Student in an Organized Health Care Education/Training Program; Referring Provider Obstetrics & Gynecology; Visit Provider Obstetrics & Gynecology
DX: Z12.31 Encounter for screening mammogram for malignant neoplasm of breast (principal)
CPT/HCPCS: 77063; 77067

== ENCOUNTER → 2023-01-13 17:22 | Outpatient (CLI) | payer OTHER, SELFPAY ==
[2023-01-13 18:43] LABS: Influenza A - CEPHEID Flu A NEGATIVE (NEGATIVE); Influenza B - CEPHEID Flu B NEGATIVE (NEGATIVE); Respiratory Syncytial Virus Negative (Negative)
[2023-01-13 19:23] LABS: COVID-19 CEPHEID 4-PLEX PCR Negative (Negative)
== END ==
PROVIDERS: Family Provider Student in an Organized Health Care Education/Training Program; PCP Student in an Organized Health Care Education/Training Program; Visit Provider Nurse Practitioner Family
DX: R51.9 Headache, unspecified (principal); R52 Pain, unspecified; R53.81 Other malaise
CPT/HCPCS: 0241U

== ENCOUNTER → 2023-05-17 16:31 | Outpatient (CLI) | payer OTHER, SELFPAY | PROVIDERS: Family Provider Student in an Organized Health Care Education/Training Program; Referring Provider Obstetrics & Gynecology; Visit Provider Obstetrics & Gynecology | DX: E55.9 Vitamin D deficiency, unspecified (principal); N95.1 Menopausal and female climacteric states | CPT/HCPCS: 82306; 83001 ==

== ENCOUNTER → 2023-07-19 15:10 | Outpatient (CLI) | payer OTHER, SELFPAY ==
--- NOTE | 2023-07-19 15:11 | DI.MG.S_ITS ---
BILATERAL DIGITAL SCREENING MAMMOGRAM 3D/2D WITH CAD: 07/19/2023 CLINICAL: Routine screening. Comparison is made to exams dated: 06/21/2022 mammogram, 06/09/2021 mammogram, 04/22/2020 mammogram, 10/30/2018 mammogram, and 10/28/2017 mammogram - [facility]. Both breasts are heterogeneously dense, which may obscure small masses (category c / 51-75% glandular tissue). Current study was also evaluated with a Computer Aided Detection (CAD) system. There is a biopsy clip in the right breast. Second clip in the right breast. No significant masses, calcifications, or other findings are seen in either breast. There has been no significant interval change. IMPRESSION: NEGATIVE There is no mammographic evidence of malignancy. A 1 year screening mammogram is recommended. Based on the Tyrer Cuzick model (a risk assessment model) the patient's lifetime risk is 14.3% and her 10 year risk is 3.7%. According to the ACR, ACS, and NCCN guidelines, an annual breast MRI exam along with mammogram is recommended if the patient's lifetime risk is 20% or greater. This exam was interpreted at Station ID: [id number]. NOTE: For mammograms, a report in lay terms will be sent to the patient. Approximately 15% of breast malignancies will not be visualized mammographically. In the management of a palpable breast mass, a negative mammogram must not discourage biopsy of a clinically suspicious lesion. Electronically Signed By: Keanu Montana M.D. slc/:07/20/2023 15:02:09 letter sent: Normal Exam ACR BI-RADS Category 1: Negative 3341F
== END ==
PROVIDERS: Family Provider Student in an Organized Health Care Education/Training Program; Referring Provider Obstetrics & Gynecology; Visit Provider Obstetrics & Gynecology
DX: Z12.31 Encounter for screening mammogram for malignant neoplasm of breast (principal)
CPT/HCPCS: 77063; 77067

== ENCOUNTER → 2023-10-05 12:53 | Outpatient (CLI) | payer OTHER, SELFPAY ==
--- NOTE | 2023-10-05 | DI.US.S_ITS ---
PROCEDURE: US THYROID INDICATIONS: ENLARGED THYROID TECHNIQUE: Real-time scanning was performed of the thyroid gland, with image documentation. COMPARISON: None. FINDINGS: Thyroid: Right lobe measures 4.4 x 1.2 x 1.5 cm. Left lobe measures 6.8 x 2.8 x 2.7 cm. Isthmus is 0.2 cm thick. Echotexture is homogeneous. Nodule number: 1 Location: Left mid/inferior Size: 4.1 x 2.6 x 2.3 cm. Composition: Solid Echogenicity: Isoechoic Shape: wider than tall. Margins: Smooth Echogenic foci: None Total points: 3 ACR TI-RADS category: Mildly suspicious Additional subcentimeter nodules are noted which do not require follow-up. IMPRESSION: Large left thyroid lobe nodule as above. Recommend fine needle aspiration. ACR TI-RADS definitions and recommendations: TI-RADS 1 (benign): 0 points. FNA not needed. TI-RADS 2 (not suspicious): 2 points. FNA not needed. TI-RADS 3 (mildly suspicious): 3 points. * FNA if 2.5 cm or larger, follow up if 1.5 cm or larger (at 1, 3, and 5 years). TI-RADS 4 (moderately suspicious): 4-6 points. * FNA if 1.5 cm or larger, follow up if 1 cm or larger (at 1, 2, 3, and 5 years). TI-RADS 5 (highly suspicious): 7 points or more. * FNA if 1 cm or larger, follow up if 0.5 cm or larger (every year for 5 years). Dictated by: Kris Reina M.D. on 10/05/2023 at 15:07 Approved by: Kris Reina M.D. on 10/05/2023 at 15:09
== END ==
LOC: US 12:54
PROVIDERS: Family Provider Student in an Organized Health Care Education/Training Program; PCP Internal Medicine; Referring Provider Otolaryngology; Visit Provider Otolaryngology
DX: E04.1 Nontoxic single thyroid nodule (principal)
CPT/HCPCS: 76536

== ENCOUNTER → 2023-11-11 14:02 | Outpatient (CLI) | payer OTHER, SELFPAY ==
--- NOTE | 2023-11-11 | PATH_ITS ---
Note [facility] Accession Number: [id number] TESTS RESULT FLAG UNITS REF RANGE LAB Clinician Provided Cytology Information No. of containers..01 Other (Miscellaneous) No. of containers..02 Previously Prepared Cytology Slide Source: [A] 01 LEFT THYROID NODULE DIAGNOSIS: [A] 01 LEFT THYROID NODULE SUSPICIOUS FOR MALIGNANCY. B[place]ES[place] CATEGORY V. SUSPICIOUS FOR PAPILLARY CARCINOMA. SPECIMEN CONSISTS OF FOLLICULAR CELLS WITH NUCLEAR ENLARGEMENT AND NUCLEAR PALLOR WITH GROOVES. 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 COMMENT: As part of routine design quality engineer, this case was also reviewed by Dr. Lis Chicas, who agrees with the interpretation. Pathologist ICD10: 01 R89.6 Signed out by: Yolis Saeed MD, Pathologist NPI- [id number] Performed by: Aurelio Lovett, [employer] ([facility]) Gross description: 30 CC, PINK, CLEAR RECIEVED: IN CYTOLYT WITH 6 ALCOHOL FIXED AND 6 QUICK STAINED SLIDES ALSO 1 RNA VIAL WILL ON 07-19-2025.VO /VDU 11/14/2023 0906 Local FLAG LEGEND: L-Low Normal,H-High Normal,LL-Alert Low,HH-Alert High <-Panic Low,>-Panic High,A-Abnormal,AA-Critical Abnormal Performed at: 01 =Z [facility] [address] [place] [address], [place] [address] Olu Gabriel MD, Performed at: 01 [facility] [address] [address], [place], [place] [id number] MD Olu Gabriel MD Phone: [phone]
--- NOTE | 2023-11-11 14:04 | DI.US.S_ITS ---
PROCEDURE: US FINE NEEDLE ASPIRATION INDICATIONS: Nontoxic single thyroid nodule TECHNIQUE: The indications, alternatives, benefits, risks, and complications of the procedure were explained to the patient. Written informed consent was obtained and placed in the chart. The area of interest was examined sonographically and a site was chosen for ultrasound guided percutaneous sampling. The skin was prepared and draped in the usual fashion, and anesthetized with 1% lidocaine infiltrated from the skin down to the lesion. Multiple passes were then performed, with contents emptied into an appropriate pathology specimen container. A bandage was applied to the area of access at completion of the study. COMPARISON: [facility], , THYROID, 10/05/2023, 13:00. FINDINGS: Location(s) of lesion(s) sampled: Left thyroid nodule [place]: 25 gauge hypodermic needles. Number of passes: 6 Medications: 1% lidocaine for local anaesthesia. Complications: None. IMPRESSION: Successful ultrasound-guided left thyroid nodule fine needle aspiration, with cytology results pending. Dictated by: Ishmael Babb M.D. on 11/14/2023 at 10:41 Approved by: Ishmael Babb M.D. on 11/14/2023 at 10:42
== END ==
LOC: US 14:03
PROVIDERS: Family Provider Student in an Organized Health Care Education/Training Program; PCP Internal Medicine; Referring Provider Otolaryngology; Visit Provider Otolaryngology
DX: E04.1 Nontoxic single thyroid nodule (principal)
CPT/HCPCS: 10005

== ENCOUNTER 2023-11-21 11:36 | Day surgery (SDC) | payer OTHER, SELFPAY ==
--- NOTE | 2023-11-21 | PATH_ITS ---
[facility] Accession Number: [id number] No. of containers..01 Tissue . 01 Material submitted: . cecum - CECUM POLYP . 01 Diagnosis: Colon, cecum, polyp biopsy: Tubular adenoma. TXN 11/25/2023 1249 Local . 01 Electronically signed: . Elizabeth Whiting MD, Pathologist NPI- [id number] . 01 Gross description: . CECUM POLYP: Received in formalin are 2 fragment(s) of [place], soft tissue measuring 0.1 x 0.1 x 0.1 cm to 0.3 x 0.3 x 0.2 cm submitted entirely in 1 cassette(s) /BLU 11/22/2023 2257 Local . 01 Pathologist provided ICD-10: D12.6 . 01 CPT . 479932 Specimen Comment: A courtesy copy of this report has been sent to [phone] Performed at: 01 [facility] [address] [place] [address], [place], [place] [id number] MD Olu Gabriel MD Phone: [phone]
[2023-11-21 13:24] VITALS: BP 112/68; PULSE 76; RESP 16; TEMP 36.2; O2SAT 98
--- NOTE | 2023-11-21 13:36 | PM.HP.1 ---
History of Present Illness History of Present Illness Date Patient Seen: 11/21/23 Time Patient Seen: 13:36 Chief complaint: Dx Colonoscopy Narrative: 53-year-old reporting family history of unknown histology colon polyps. Colonoscopy has thus been requested. She reports having a twisty tortuous colon but no polyps at her last exam 5 years ago. [facility] Medical History History of abnormal cervical Pap smear Conjunctivitis Adjustment disorder Foot fracture (1987) Painful menstrual periods (2005) Abnormal Pap smear of cervix Chicken pox (1973) Acne (2010) CTS (carpal tunnel syndrome) (1998) Migraines (1986) Asthma Ovarian cyst (2002) Surgical History Anesthesia Status post laparoscopy (2002) Family History Father Age: 73 Meningitis spinal COPD (chronic obstructive pulmonary disease) Grandmother High cholesterol COPD (chronic obstructive pulmonary disease) Mother Age: 71 Cervical cancer High cholesterol Grandfather Pancreatic cancer Grandmother No problems noted. Grandfather Heart attack Social History marital status: household members: spouse and children occupational status: employed Smoking Status: Never smoker alcohol intake: current substance use type: does not use Meds Home Medications and Allergies Home Medications Medication Instructions Recorded Confirmed Type alprazolam 0.5 mg tablet 0.25 - 0.5 mg (0.5 - 1 x 0.5 mg) 05/02/13 11/21/23 Rx PO Q6H PRN panic attack(s) #10 tabs Calcium 1 tab PO DAILY 01/25/19 01/13/23 History Fish Oil 1 cap PO DAILY 01/25/19 11/21/23 History Vitamin B 1 cap PO DAILY 01/25/19 11/21/23 History multivitamin 1 tab PO DAILY 01/25/19 11/21/23 History ylipgpojwx-sqssxlnjmekab-gfanponj See Rx Instructions .Route 04/13/20 11/21/23 Rx 50 mg-325 mg-40 mg tablet .COMPLEX #20 tabs rizatriptan 10 mg disintegrating See Rx Instructions PO .COMPLEX 04/17/20 11/21/23 Rx tablet #10 tabs levonorgestrel 21 mcg/24 hours (8 intrauterine 08/12/20 01/13/23 History yrs) 52 mg intrauterine device (Mirena) betamethasone dipropionate 0.05 % 1 applic topical DAILY #15 grams 10/05/21 01/13/23 Rx topical cream cyclobenzaprine 10 mg tablet 10 mg PO BEDTIME #30 tabs 05/04/22 11/21/23 Rx celecoxib 50 mg capsule (Celebrex) 50 mg PO BID PRN Muscle Pain 05/17/23 11/21/23 History estradiol 0.05 mg/24 hr semiweekly 1 patch transdermal 2XW #8 ea 07/08/23 11/21/23 Rx transdermal patch (Vivelle-Dot) progesterone micronized 100 mg 100 mg PO BEDTIME #30 caps 07/08/23 11/21/23 Rx capsule (Prometrium) Allergies Allergy/AdvReac Type Severity Reaction Status Date / Time Sulfa (Sulfonamide AdvReac Mild VOMITING Verified 11/21/23 13:14 Antibiotics) [SULFA (SULFONAMIDE ANTIBIOTICS)] Review of Systems Review of Systems ROS: Yes All systems reviewed with the patient and are negative except as otherwise documented Exam Vital Signs (past 8 hours): - 11/21/23 13:24 Temperature 97.2 F L Pulse Rate 76 Respiratory Rate 16 Blood Pressure 112/68 Pulse Oximetry 98 Oxygen Delivery Method Room Air Oxygen Delivery Method Room Air Const General: cooperative HENMT Head: normal to inspection Eyes General: appearance normal, both eyes and all related structures Neck Neck: normal visual inspection Chest Chest: normal inspection of the chest Resp Effort & Inspection: normal respiratory effort Cardio Rate: regular rate GI Inspection: normal to inspection Skin General: no rashes or lesions noted Neuro General: patient alert and patient awake Extrem General: normal to inspection and no pedal edema Psych Appearance: grossly normal Assessment & Plan Assessment & Plan narrative: 53-year-old with a family history of colon polyps. Colonoscopy is pursued today.
[2023-11-21] MEDS: LACTATED RINGERS 1,000 ML 42 ML IV (13:37)
--- NOTE | 2023-11-21 13:38 | PM.PREOP ---
Pre-operative Note Interval Note History & Physical reviewed/Exam performed by Physician: Yes Changes to H&P: No ASA Class (for procedural sedation): II
--- NOTE | 2023-11-21 14:28 | P.OP.COLON_ITS ---
Operative Date/Time/Diagnoses Date of procedure: 11/21/23 Time of procedure: 14:28 Pre-op diagnosis: Family history of colon polyps Post-op diagnosis: same Procedure & Clinicians Study performed: Colonoscopy with cold forceps polypectomy Same procedure as scheduled: Yes Indications: Family history of colon polyps Surgeon: Paramjit Loyola Procedure Notes SCOAP/Timeout: Done Procedure in detail: After the risks and benefits were explained, written and verbal informed consent was obtained. The patient was brought into the procedure room and placed into the left lateral decubitus position. Please see anesthesia notes for sedation details. Digital rectal examination was accomplished. The scope was introduced into the patient and advanced under direct visualization to the cecum as identified by the appendiceal orifice and ileocecal valve. The scope was slowly withdrawn to carefully examine the mucosa for any defects or lesions. Comprehensive imaging was accomplished throughout the rectum including the denta te line. The colon was decompressed, the scope was then removed from the patient who tolerated the procedure well. Pediatric colonoscope Bowel prep adequate Scope withdrawal time: 8 minutes Sedation minutes: 17 Complications: none Impression: Patient had an extremely tortuous colon. There were scattered large mouth diverticula all throughout the left and mid colon. In the cecum there was a diminutive perhaps 3-4 mm polyp removed with cold forceps. No additional pathology was appreciated throughout. Endoscopic diagnosis 1. Tortuous colon 2. Diverticulosis 3. Diminutive cecal polyp Post-procedure Plan for aftercare: 1. Await histology. 2. Repeat colonoscopy timing will be contingent on pathology results. Disposition: PACU
[2023-11-21 14:31] VITALS: BP 96/57; PULSE 73; RESP 17; TEMP 36.1; O2SAT 98
[2023-11-21 14:36] VITALS: BP 104/59; PULSE 71; RESP 14; O2SAT 97
[2023-11-21 14:41] VITALS: BP 112/69; PULSE 70; RESP 12; O2SAT 100
[2023-11-21 14:51] VITALS: BP 115/76; PULSE 58; RESP 14; TEMP 36.6; O2SAT 98
== END 2023-11-21 15:07 | disposition home or self-care (01) ==
PROVIDERS: Family Provider Student in an Organized Health Care Education/Training Program; PCP Internal Medicine; Referring Provider Internal Medicine Gastroenterology; Visit Provider Internal Medicine Gastroenterology
PROC: 0DJD8ZZ Inspection of Lower Intestinal Tract, Via Natural or Artificial Opening Endoscopic (ICD-10-PCS; CPT 45378; principal; 2023-11-21 13:00)
DX: Z12.11 Encounter for screening for malignant neoplasm of colon (principal); K57.30 Diverticulosis of large intestine without perforation or abscess without bleeding; Z83.719 Family history of colon polyps, unspecified; D12.0 Benign neoplasm of cecum
CPT/HCPCS: 45380; J2704

== ENCOUNTER → 2024-02-18 13:56 | Outpatient (CLI) | payer OTHER, SELFPAY ==
--- NOTE | 2024-02-18 13:58 | DI.US.S_ITS ---
PROCEDURE: US THYROID INDICATIONS: THYROID NODULE TECHNIQUE: Real-time scanning was performed of the thyroid gland, with image documentation. COMPARISON: [facility], US, US THYROID, 10/05/2023, 13:00. FINDINGS: Thyroid: Right lobe measures 4.3 x 1.2 x 1.5 cm. Left lobe measures 6.3 x 2.8 x 2.4 cm. Isthmus is 0.2 cm thick. Echotexture is homogeneous. Nodule number: 1 Location: Left Size: 5.0 x 2.4 x 2.5 , previously 4.1 x 2.6 x 2.3 cm. Composition: Solid Echogenicity: Hyperechoic Shape: wider than tall. Margins: Smooth Echogenic foci: None Total points: 3 ACR TI-RADS category: Mildly suspicious Additional subcentimeter nodules are noted which do not require follow-up. IMPRESSION: Large left thyroid nodule is mildly increased compared to prior. ACR TI-RADS definitions and recommendations: TI-RADS 1 (benign): 0 points. FNA not needed. TI-RADS 2 (not suspicious): 2 points. FNA not needed. TI-RADS 3 (mildly suspicious): 3 points. * FNA if 2.5 cm or larger, follow up if 1.5 cm or larger (at 1, 3, and 5 years). TI-RADS 4 (moderately suspicious): 4-6 points. * FNA if 1.5 cm or larger, follow up if 1 cm or larger (at 1, 2, 3, and 5 years). TI-RADS 5 (highly suspicious): 7 points or more. * FNA if 1 cm or larger, follow up if 0.5 cm or larger (every year for 5 years). Dictated by: Kris Reina M.D. on 02/24/2024 at 13:20 Approved by: Kris Reina M.D. on 02/24/2024 at 13:24
== END ==
PROVIDERS: Family Provider Student in an Organized Health Care Education/Training Program; PCP Internal Medicine; Referring Provider Otolaryngology; Visit Provider Otolaryngology
DX: E04.1 Nontoxic single thyroid nodule (principal)
CPT/HCPCS: 76536

== ENCOUNTER → 2024-05-07 15:22 | Outpatient (CLI) | payer OTHER, SELFPAY | PROVIDERS: Family Provider Student in an Organized Health Care Education/Training Program; PCP Internal Medicine; Visit Provider Physician Assistant | DX: R30.0 Dysuria (principal) | CPT/HCPCS: 87077; 87086; 87186 ==

== ENCOUNTER → 2024-05-24 14:53 | Outpatient (CLI) | payer OTHER, SELFPAY | PROVIDERS: Family Provider Student in an Organized Health Care Education/Training Program; PCP Internal Medicine; Visit Provider Urology | DX: R39.15 Urgency of urination (principal); R30.0 Dysuria; N39.8 Other specified disorders of urinary system; R33.9 Retention of urine, unspecified; N39.0 Urinary tract infection, site not specified | CPT/HCPCS: 51798; 81002; 87086 ==

== ENCOUNTER → 2024-06-08 11:25 | Outpatient (CLI) | payer OTHER, SELFPAY ==
[2024-06-08 13:59] LABS: Appearance Urine UA CLEAR; Bilirubin Urine UA NEGATIVE (NEGATIVE); Color Urine UA YELLOW; Glucose Urine UA NEGATIVE (Negative); Ketones Urine UA NEGATIVE (NEGATIVE); Leukocyte Esterase Urine UA NEGATIVE (NEGATIVE); Nitrite Urine UA NEGATIVE (Negative); Occult Blood Urine UA NEGATIVE (Negative); Protein Urine UA NEGATIVE (Negative); Specific Gravity Urine UA <=1.005 (1.000-1.035); Urobilinogen Urine UA 0.2 E.U./dL (0.2)
[2024-06-08 14:16] LABS: pH Urine UA 5.5 (4.5-8.0)
[2024-06-08 14:18] LABS: Bacteria Urine None Seen; RBC Urine None Seen (0-5/HPF); Squamous Epithelial Cell Urine 0-1 /HPF (0-5/HPF); Urine Volume 10mL (spun); WBC Urine None Seen (0-5/HPF)
[2024-06-08 14:19] LABS: Culture Indicated Urine Cult Not Indicated
== END ==
PROVIDERS: Urology; Family Provider Internal Medicine; PCP Internal Medicine; Referring Provider Psychiatry & Neurology Neurology; Visit Provider Psychiatry & Neurology Neurology
DX: E55.9 Vitamin D deficiency, unspecified (principal); R33.9 Retention of urine, unspecified; N39.0 Urinary tract infection, site not specified; N39.8 Other specified disorders of urinary system; R39.15 Urgency of urination; R30.0 Dysuria
CPT/HCPCS: 36415; 81001; 82308; 82652

== ENCOUNTER → 2024-07-20 13:36 | Outpatient (CLI) | payer OTHER, SELFPAY ==
--- NOTE | 2024-07-20 13:37 | DI.MG.S_ITS ---
BILATERAL DIGITAL SCREENING MAMMOGRAM 3D/2D WITH CAD: 07/20/2024 CLINICAL: Routine screening. Comparison is made to exams dated: 07/19/2023 mammogram, 06/21/2022 mammogram, and 06/09/2021 mammogram - [facility]. The breasts are heterogeneously dense, which may obscure small masses (category c / 51-75% glandular tissue). Current study was also evaluated with a Computer Aided Detection (CAD) system. There is a biopsy clip in the right breast. No significant masses, calcifications, or other findings are seen in either breast. There has been no significant interval change. IMPRESSION: NEGATIVE There is no mammographic evidence of malignancy. A 1 year screening mammogram is recommended. Based on the Tyrer Cuzick model (a risk assessment model) the patient's lifetime risk is 14.5% and her 10 year risk is 4.0%. According to the ACR, ACS, and NCCN guidelines, an annual breast MRI exam along with mammogram is recommended if the patient's lifetime risk is 20% or greater. This exam was interpreted at Station ID: [id number]. NOTE: For mammograms, a report in lay terms will be sent to the patient. Approximately 15% of breast malignancies will not be visualized mammographically. In the management of a palpable breast mass, a negative mammogram must not discourage biopsy of a clinically suspicious lesion. Electronically Signed By: Ishmael rowan/mana:07/21/2024 09:23:42 letter sent: Normal Exam ACR BI-RADS Category 1: Negative
== END ==
PROVIDERS: Family Provider Internal Medicine; PCP Internal Medicine; Referring Provider Internal Medicine; Visit Provider Internal Medicine
DX: Z12.31 Encounter for screening mammogram for malignant neoplasm of breast (principal); R92.333 Mammographic heterogeneous density, bilateral breasts
CPT/HCPCS: 77063; 77067

== ENCOUNTER 2024-08-24 13:45 | Outpatient (RCR) | payer OTHER, SELFPAY ==
--- NOTE | 2024-06-07 16:55 | ST.OPIE ---
Visit Care Team Role Provider Type Dionne Powell MD Family Provider Physician Primary Care Provider Specialty: Internal Medicine Address: [place], [address] Email: Radha John MD Attending Provider Non-Staff Referring Provider Specialty: Otolaryngology (ENT) Address: [address] [place] [address], [id number] Email: Speech-Language Pathology Initial Evaluation [facility] Voice Resonance Evaluation Start: 06/07/24 14:51 Freq: Status: Active Protocol: Document 06/07/24 14:51 MA (Rec: 06/07/24 14:53 MA [id number]) Voice and Resonance Assessment Session Time Visit Start Time 15:15 Visit Stop Time 16:00 Total Visit Minutes 45 Visit Information Visit Number Initial Eval Plan of Care Dates 06/07/24-09/07/24 Insurance Information [employer] Next Note Type Next Note Type Treatment Note Referral Referring Physician Dr. 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 Pt reports minimal swallow difficulties and will have water go down the wrong pipe about 3x/week. Pt reports she would like to focus on voice concerns at this time. ST to informally assess swallow throughout POC. Pt reports difficulties breathing and changes in vocal quality s/p surgery. She states she runs out of breath easily and has to talk a lot for her job. 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 She reports occasionally by the end of the day her voice will give out . She last had an endoscopy completed on 05/22, which indicated her L TVF had a little movement. No records on file of results at this time and all information is per Pt report. She states she will try and bring results in for next session. Her next endoscopy is scheduled for . She reports trouble singing and projecting and loves to sing and would like to be able to sing again. She reports sadness and frustration over not being able to sing like she once was able to do so. Hearing Hearing Level Normal Previous Therapy Previous Speech-Language Therapy No Oral Motor Assessment Source: [employer] ([employer]). Oral-Motor Eval Completed Yes Oral-Motor Assessment WNL - Laryngeal Performance S/Z Ratio S/Z Ratio 1.25 Functional for Speech Yes Reduced Laryngeal Function Relative to Yes Respiration Voice Handicap Index Function Subtotal 27 Physical Subtotal 23 Emotional Subtotal 11 Total Score 61 Severity Severe (61-120) Maximum Phonation Time MPT Norms: Women (15-25) Men (25-35) Loudness (50-60 dB); Speaking Rate: Oral Reading of Sentences (190 Words Per Minute); Oral Reading of Paragraphs (160-170 WPM); Speaking Rate in Conversation (150-250 WPM) Maximum Phonation Time 10 seconds Maximum Phonation Time Reduced Maximum Phonation Time Comments Pt demonstrated reduced maximum phonation time (norm for women 15-25 seconds), which also impacts her speech d/t her reporting reduced breath support the more she communicates. ST exhibited increased SOB by the end of the evaluation. Breath Support Breath Support At Rest Thoracic Breath Support Sustained Phonation Thoracic Breath Support Conversation Thoracic Postural Alignment Stance Balanced Voice Pitch Range Norms: Women (100-300 Hz) Men (70-250 Hz) Fundamental Frequency Norms: Women (Mean: 225 Hz; Range: 155-334 Hz) Men ( Mean: 128 Hz; Range: 85-196 Hz) Voice Pitch Normal Voice Loudness Normal Voice Phonatory-based Quality Breathy,Hoarse Resonance Nasal Resonance Normal Oral Resonance Normal Findings Findings Moderate Impairment Observations Pt presents with a moderate voice impairment, characterized by reduced breath support, mild breathiness and mild hoarseness. She exhibits a S:Z ratio of 1.25 indicating vocal pathology. Voice/Resonance Assessment Assessment Pt presents with a moderate voice impairment, characterized by the above mentioned deficits. She scored a 61 on the Voice Handicap Index-10, indicating a severity rating of severe, which is often seen with Pt's with vocal fold paralysis. She scored the highest on the functional section of the Voice Handicap Index, and physical as a close second, which indicates she feels her voice functionall and physically impact her thhe most on a daily basis. ST is warranted in order to educate Pt on vocal hygiene practices, respiration exercises and resonant voice exercises to improve overall vocal quality and improve Pt perception of voice. Prognosis Rehabilitation Potential Excellent - Recommendations Treatment Recommended Yes Treatment Frequency/Duration 1x/week for 3 months Placement Recommendation Home Short Term Goals STG 1: Pt will complete vocal exercises (i.e. vocal glides, phonation sustains, diaphragmatic breathing, resonance exercises) to improve vocal quality and patient's overall intelligibility of verbal communication. STG 2: Pt will demonstrate knowledge with good vocal hygiene practices and reflex precautions in order to promote carryover. STG 3: Pt will decrease score on Voice Handicap Index-10 from a 61 to a score between 0 -30. Residential Goals LTG: Patient will improve self -perception of speech/voice as indicated by score on Voice Handicap Index-10. LTG: Patient will produce spontaneous speech using intent with minimal verbal cueing in order to improve communication effectiveness. Patient/Caregiver Education Patient/Family Education Described results of evaluation,Patient Understanding
--- NOTE | 2024-06-07 16:55 | ST.OPPOC ---
Physical, Occupational & Speech Therapy At [facility] Visit Care Team Role Provider Type Dionne Powell MD Family Provider Physician Primary Care Provider Address: [place], [address] Radha John MD Attending Provider Non-Staff Referring Provider Address: [address] [place] [address], [id number] Speech Pathology Plan of Care Plan of Care Dates 06/07/24-09/07/[address] 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 Pt reports minimal swallow difficulties and will have water go down the wrong pipe about 3x/week. Pt reports she would like to focus on voice concerns at this time. ST to informally assess swallow throughout POC. Pt reports difficulties breathing and changes in vocal quality s/p surgery. She states she runs out of breath easily and has to talk a lot for her job. 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 She reports occasionally by the end of the day her voice will give out. She last had an endoscopy completed on 05/22, which indicated her L TVF had a little movement. No records on file of results at this time and all information is per Pt report. She states she will try and bring results in for next session. Her next endoscopy is scheduled for 06/25/24. She reports trouble singing and projecting and loves to sing and would like to be able to sing again. She reports sadness and frustration over not being able to sing like she once was able to do so. Voice/Resonance Findings Moderate Impairment Voice/Resonance Assessment Pt presents with a moderate voice impairment, characterized by the above mentioned deficits. She scored a 61 on the Voice Handicap Index-10, indicating a severity rating of severe, which is often seen with Pt's with vocal fold paralysis. She scored the highest on the functional section of the Voice Handicap Index, and physical as a close second, which indicates she feels her voice functionall and physically impact her thhe most on a daily basis. ST is warranted in order to educate Pt on vocal hygiene practices, respiration exercises and resonant voice exercises to improve overall vocal quality and improve Pt perception of voice . Voice/Resonance Prognosis Excellent Voice/Resonance Yes Recommendations Voice/Resonance Treatment 1x/week for 3 months Frequency Short Term Goals STG 1: Pt will complete vocal exercises (i.e. vocal glides, phonation sustains, diaphragmatic breathing, resonance exercises) to improve vocal quality and patient's overall intelligibility of verbal communication. STG 2: Pt will demonstrate knowledge with good vocal hygiene practices and reflex precautions in order to promote carryover. STG 3: Pt will decrease score on Voice Handicap Index-10 from a 61 to a score between 0-30. Energy Professional Goals LTG: Patient will improve self-perception of speech/voice as indicated by score on Voice Handicap Index-10. LTG: Patient will produce spontaneous speech using intent with minimal verbal cueing in order to improve communication effectiveness. Comment: Electronically Signed by: CT Bhatti 06/07/24 1322 If you are in agreement with this Plan of Care, please return a signed and dated copy. I have reviewed this Plan of Care and certify that the skilled therapy services above are required to meet the patient?s needs. Physician Signature Date Printed Name and Credentials Clinical Instructor Signature Printed Name and Credentials
--- NOTE | 2024-06-15 15:08 | ST.OPTN ---
Visit Care Team Role Provider Type Dionne Powell MD Family Provider Physician Primary Care Provider Address: [place], [address] Radha John MD Attending Provider Non-Staff Referring Provider Address: [facility] [address], [address] HUMAN CAPITAL MANAGER Treatment Note HUMAN CAPITAL MANAGER Treatment Note Start: 06/15/24 14:57 Freq: Status: Active Protocol: Document 06/15/24 14:57 KAMI (Rec: 06/15/24 15:08 KAMI [id number]) Speech Pathology Treatment Note Session Time Visit Start Time 14:30 Visit Stop Time 15:00 Total Visit Minutes 30 Visit Information Visit Number 2 Plan of Care Dates 06/07/24-09/07/24 Next Note Type Next Note Type Treatment Note General Information Patient History Pt is a 53 year old female seen this date for voice evaluation d/t dysphonia, occasionoal dysphagia and 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 Pt reports minimal swallow difficulties and will have water go down the wrong pipe about 3x/week. Pt reports she would like to focus on voice concerns at this time. ST to informally assess swallow throughout POC. Pt reports difficulties breathing and changes in vocal quality s/p surgery. She states she runs out of breath easily and has to talk a lot for her job. 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 She last had an endoscopy completed on 05/22, which indicated her L TVF had a little movement. No records on file of results at this time and all information is per Pt report. She states she will try and bring results in for next session. Her next endoscopy is scheduled for . She reports trouble singing and projecting and loves to sing and would like to be able to sing again. She reports sadness and frustration over not being able to sing like she once was able to do so. Subjective Identification Type Name Observations/Patient Presentation Pt arrived to therapy on time. Objective Lime Boiler Goals LTG: Patient will improve self -perception of speech/voice as indicated by score on Voice Handicap Index-10. LTG: Patient will produce spontaneous speech using intent with minimal verbal cueing in order to improve communication effectiveness. Treatment Activities Diaphragmatic breathing exercises, vocal fold adduction exercises Assessment Patient Response to Treatment Excellent Rehab Potential Excellent Impairments Identified Voice Progress Towards Goals Good Progress Assessment of Improvement Pt reports she has been completing breathing exercises at home. She states she has been inhaling for 8 seconds and exhaling for 8 seconds when completing respiration exercises. ST educated Pt on recommendation to compelte respiration exercises with a 1 :2 ratio, so inhaling for 8 seconds and exhaling for 16 seconds. Pt verbalized understanding. Pt reports continued gravly voice. She reports continued SOB, especially when talking a lot and when talking and walking. She reports a lot of frustration with running out of air when talking d/t her job requiring her to speak a lot. She reports she had to give a presentation and had her boss finish it d/t running out of air. Pt also reports occasional swallowing difficulties, however she states it is improving. ST educated Pt on anatomy of the pharynx. ST also educated Pt to try and take more breaths while talking and taking breaks. ST provided educational handouts on vocal adduction exercises, specifically clasping hands and holding bottom of chair and saying ah for 10 seconds . Pt able to complete with 100 % accuracy. ST recommended Pt complete adduction exercises, as well as respiration exercises as part of her HEP. Pt verbalized understanding. Reviewed with Patient Progress Being Made,Home Exercise Program
--- NOTE | 2024-06-19 15:38 | ST.OPTN ---
Visit Care Team Role Provider Type Dionne Powell MD Family Provider Physician Primary Care Provider Address: [place], [address] Radha John MD Attending Provider Non-Staff Referring Provider Address: [facility] [address], [address] PRACTICE MANAGER Treatment Note PRACTICE MANAGER Treatment Note Start: 06/15/24 14:57 Freq: Status: Active Protocol: Document 06/19/24 15:33 MA (Rec: 06/19/24 15:38 MA [id number]) Speech Pathology Treatment Note Session Time Visit Start Time 11:30 Visit Stop Time 12:00 Total Visit Minutes 30 Visit Information Visit Number 3 Plan of Care Dates 06/07/24-09/07/24 Next Note Type Next Note Type Treatment Note General Information Patient History Pt is a 53 year old female seen this date for voice evaluation d/t dysphonia, occasionoal dysphagia and 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 Pt reports minimal swallow difficulties and will have water go down the wrong pipe about 3x/week. Pt reports she would like to focus on voice concerns at this time. ST to informally assess swallow throughout POC. Pt reports difficulties breathing and changes in vocal quality s/p surgery. She states she runs out of breath easily and has to talk a lot for her job. 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 She last had an endoscopy completed on 05/22, which indicated her L TVF had a little movement. No records on file of results at this time and all information is per Pt report. She states she will try and bring results in for next session. Her next endoscopy is scheduled for . She reports trouble singing and projecting and loves to sing and would like to be able to sing again. She reports sadness and frustration over not being able to sing like she once was able to do so. Subjective Identification Type Name Observations/Patient Presentation Pt arrived to therapy on time. Objective Levelman Goals LTG: Patient will improve self -perception of speech/voice as indicated by score on Voice Handicap Index-10. LTG: Patient will produce spontaneous speech using intent with minimal verbal cueing in order to improve communication effectiveness. Treatment Activities Diaphragmatic breathing exercises, vocal fold adduction exercises Assessment Patient Response to Treatment Excellent Rehab Potential Excellent Impairments Identified Voice Progress Towards Goals Good Progress Assessment of Improvement Pt reports continued difficulties with her voice, however slight improvements. She reports continued difficulties with breath support while communicating, and states, if not talking a lot she doesn't run out of breath and that her voice is weaker end of the day. She does report she can call to her from upstairs without as much difficulty as before. Pt reports she has been completing her respiration/ voice exercises at home. She continues to report a lot of frustration with running out of air when talking d/t her job requiring her to speak a lot. ST provided additional respiration handouts to add to her HEP targeting breath support and control. ST educated Pt on exercises and provided a demonstration. Exercises included diaphragmatic breathing and counting to 20 while taking breaks every 5 breaths, stating short phrases/ paragraphs and practicing pausing and taking breaths at the indicated break spots and practicing taking breathing breaks during long sentences. Pt able to complete with 100% accuracy. ST recommended Pt complete adduction exercises, as well as respiration exercises as part of her HEP. Pt verbalized understanding. Reviewed with Patient Progress Being Made,Home Exercise Program
--- NOTE | 2024-06-26 12:15 | ST.OPTN ---
Visit Care Team Role Provider Type Dionne Powell MD Family Provider Physician Primary Care Provider Address: [place], [address] Radha John MD Attending Provider Non-Staff Referring Provider Address: [facility] [address], [address] THERAPIST PHYSICAL Treatment Note THERAPIST PHYSICAL Treatment Note Start: 06/15/24 14:57 Freq: Status: Active Protocol: Document 06/26/24 11:59 MA (Rec: 06/26/24 12:14 MA [id number]) Speech Pathology Treatment Note Session Time Visit Start Time 11:30 Visit Stop Time 12:00 Total Visit Minutes 30 Visit Information Visit Number 4 Plan of Care Dates 06/07/24-09/07/24 Next Note Type Next Note Type Treatment Note General Information Patient History Pt is a 53 year old female seen this date for voice evaluation d/t dysphonia, occasionoal dysphagia and 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 Pt reports minimal swallow difficulties and will have water go down the wrong pipe about 3x/week. Pt reports she would like to focus on voice concerns at this time. ST to informally assess swallow throughout POC. Pt reports difficulties breathing and changes in vocal quality s/p surgery. She states she runs out of breath easily and has to talk a lot for her job. 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 She last had an endoscopy completed on 05/22, which indicated her L TVF had a little movement. No records on file of results at this time and all information is per Pt report. She states she will try and bring results in for next session. Her next endoscopy is scheduled for . She reports trouble singing and projecting and loves to sing and would like to be able to sing again. She reports sadness and frustration over not being able to sing like she once was able to do so. Subjective Identification Type Name Observations/Patient Presentation Pt arrived to therapy on time. Objective Energy Administrator Goals LTG: Patient will improve self -perception of speech/voice as indicated by score on Voice Handicap Index-10. LTG: Patient will produce spontaneous speech using intent with minimal verbal cueing in order to improve communication effectiveness. Treatment Activities Diaphragmatic breathing exercises, vocal fold adduction exercises Assessment Patient Response to Treatment Excellent Rehab Potential Excellent Impairments Identified Voice Progress Towards Goals Good Progress Assessment of Improvement Pt reports she had a a follow up appointment with her surgeon yesterday and provided a video of an endoscopy of her vocal cords. Per Pt, her surgeon and the video her left vocal cord is now moving functionally. Pt reports continued difficulties with high pitch sounds and her SOB, however improvements with the breathing. She states continued frustration not hitting high notes d/t her wanting to be able to sing again. ST provided additional voice exercises, specifically vocal function exercises involving sustained ee, pitch glides and sustaining ol on musical notes. ST provided a model with Pt able to demonstrate back effectively. ST recommended Pt continue voice exercises at home as well as the newer exercises provided today. She states she hasn't been able to do hehr exercises consistently, however will get back to doing them regularly. Reviewed with Patient Progress Being Made,Home Exercise Program
--- NOTE | 2024-07-09 15:55 | ST.OPTN ---
Visit Care Team Role Provider Type Dionne Powell MD Family Provider Physician Primary Care Provider Address: [place], [address] Radha John MD Attending Provider Non-Staff Referring Provider Address: [facility] [address], [address] MANAGER BUDGET Treatment Note MANAGER BUDGET Treatment Note Start: 06/15/24 14:57 Freq: Status: Active Protocol: Document 07/09/24 15:42 MA (Rec: 07/09/24 15:43 MA [id number]) Speech Pathology Treatment Note Session Time Visit Start Time 15:15 Visit Stop Time 15:45 Total Visit Minutes 30 Visit Information Visit Number 5 Plan of Care Dates 06/07/24-09/07/24 Next Note Type Next Note Type Treatment Note General Information Patient History Pt is a 53 year old female seen this date for voice evaluation d/t dysphonia, occasionoal dysphagia and 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 Pt reports minimal swallow difficulties and will have water go down the wrong pipe about 3x/week. Pt reports she would like to focus on voice concerns at this time. ST to informally assess swallow throughout POC. Pt reports difficulties breathing and changes in vocal quality s/p surgery. She states she runs out of breath easily and has to talk a lot for her job. 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 She last had an endoscopy completed on 05/22, which indicated her L TVF had a little movement. No records on file of results at this time and all information is per Pt report. She states she will try and bring results in for next session. Her next endoscopy is scheduled for . She reports trouble singing and projecting and loves to sing and would like to be able to sing again. She reports sadness and frustration over not being able to sing like she once was able to do so. Subjective Identification Type Name Observations/Patient Presentation Pt arrived to therapy on time. Objective Physician Practice Market Manager Goals LTG: Patient will improve self -perception of speech/voice as indicated by score on Voice Handicap Index-10. LTG: Patient will produce spontaneous speech using intent with minimal verbal cueing in order to improve communication effectiveness. Treatment Activities Diaphragmatic breathing exercises, vocal fold adduction exercises Assessment Patient Response to Treatment Excellent Rehab Potential Excellent Impairments Identified Voice Progress Towards Goals Good Progress Assessment of Improvement Pt reports improvements with her voice, however continues with SOB. Pt engaged in a long conversation with therapist about her voice and the exercises and did not appear short of breath, however Pt reports during meetings at work and walks with her she has shortness of breath. She reports she has started singing a little again . ST assessed voice quality, breath support utilizing max phonation exercises involving Pt sustaining /e/. She sustained it for about 14 seconds and reports at home she can get closer to 20 seconds. Pt with clear vocal quality, slight tremor in the beginning, adequate loudness. Pt demonstrated additional voice exercises such as pitch glides with 100% accuracy. ST recommended Pt continue voice exercises at home. ST facilitated conversation with Pt in regards to discharging from therapy, however Pt would like to f/u in 1 month just in case her voice has not improved. Reviewed with Patient Progress Being Made,Home Exercise Program Plan Provided Patient/Caregiver Instruction Home Exercise Program, Questions/Concerns
--- NOTE | 2024-08-24 15:03 | ST.OPTN ---
Visit Care Team Role Provider Type Dionne Powell MD Family Provider Physician Primary Care Provider Address: [place], [address] Radha John MD Attending Provider Non-Staff Referring Provider Address: [facility] [address], [address] RETAIL AND RESTAURANT Treatment Note RETAIL AND RESTAURANT Treatment Note Start: 06/15/24 14:57 Freq: Status: Active Protocol: Document 08/24/24 14:03 KAMI (Rec: 08/24/24 14:03 KAMI [id number]) Speech Pathology Treatment Note Session Time Visit Start Time 13:45 Visit Stop Time 14:15 Total Visit Minutes 30 Visit Information Visit Number 6 Plan of Care Dates 06/07/24-09/07/24 Next Note Type Next Note Type Treatment Note General Information Patient History Pt is a 53 year old female seen this date for voice evaluation d/t dysphonia, occasionoal dysphagia and 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 Pt reports minimal swallow difficulties and will have water go down the wrong pipe about 3x/week. Pt reports she would like to focus on voice concerns at this time. ST to informally assess swallow throughout POC. Pt reports difficulties breathing and changes in vocal quality s/p surgery. She states she runs out of breath easily and has to talk a lot for her job. 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 She reports occasionally by the end of the day her voice will give out . She last had an endoscopy completed on 05/22, which indicated her L TVF had a little movement. No records on file of results at this time and all information is per Pt report. She states she will try and bring results in for next session. Her next endoscopy is scheduled for . She reports trouble singing and projecting and loves to sing and would like to be able to sing again. She reports sadness and frustration over not being able to sing like she once was able to do so. Subjective Identification Type Name Observations/Patient Presentation Pt arrived to therapy on time. Objective Short Term Goals STG 1: Pt will complete vocal exercises (i.e. vocal glides, phonation sustains, diaphragmatic breathing, resonance exercises ) to improve vocal quality and patient's overall intelligibility of verbal communication. - MET STG 2: Pt will demonstrate knowledge with good vocal hygiene practices and reflex precautions in order to promote carryover. - MET Half-Way Goals LTG: Patient will improve self -perception of speech/voice as indicated by score on Voice Handicap Index-10.- VHI not administered, however Pt reported overall improvements in her voice. LTG: Patient will produce spontaneous speech using intent with minimal verbal cueing in order to improve communication effectiveness.- MET Treatment Activities Check in, discharge recommendations Assessment Patient Response to Treatment Excellent Rehab Potential Excellent Impairments Identified Voice Progress Towards Goals Good Progress,Appropriate for Discharge Assessment of Improvement Pt reports improvements with her voice, however continues with some difficulties singing . She states she has not been doing her voice exercises. She states her voice quality depends on how much she has spoken in a week. She does report increased awareness of her voice. Pt engaged in a long conversation with therapist about her voice and the exercises and did not appear short of breath. Pt voice appeared clear with adequate vocal loudness. She states she has had a lot of stress at work and that also will impact her voice. ST facilitated conversation with Pt in regards to discharging from therapy d/t Pt independent with home exercise program and improvement with voice. ST recommended Pt continue voice exercise program at home and to return to therapy with a new referral if changes in voice. Pt verbalized understanding. Reviewed with Patient Goals,Progress Being Made,Home Exercise Program Plan Frequency of Treatment No Further Therapy Provided Patient/Caregiver Instruction Home Exercise Program, Questions/Concerns Therapy Recommendations Discharge from Speech Therapy
== END 2024-08-28 13:23 | disposition home or self-care (01) ==
LOC: SP 13:45
PROVIDERS: Family Provider Internal Medicine; PCP Internal Medicine; Referring Provider Otolaryngology; Visit Provider Otolaryngology
DX: R49.0 Dysphonia (principal); J38.01 Paralysis of vocal cords and larynx, unilateral; R13.13 Dysphagia, pharyngeal phase
CPT/HCPCS: 92507; 92523

== ENCOUNTER → 2024-12-06 14:45 | Outpatient (CLI) | payer OTHER, SELFPAY ==
[2024-12-06 16:43] LABS: Vitamin D 25 Hydroxy (D3) 53.8 ng/mL (30.0-100.0)
== END ==
PROVIDERS: Family Provider Internal Medicine; PCP Internal Medicine; Referring Provider Psychiatry & Neurology Neurology; Visit Provider Psychiatry & Neurology Neurology
DX: E55.9 Vitamin D deficiency, unspecified (principal)
CPT/HCPCS: 36415; 82306

== ENCOUNTER → 2025-04-09 09:46 | Outpatient (CLI) | payer OTHER, SELFPAY ==
--- NOTE | 2025-04-09 13:14 | ST.SWALLOW ---
Visit Care Team Role Provider Type Dionne Powell MD Family Provider Physician Primary Care Provider Specialty: Internal Medicine Address: [place], [address] Email: JEEVAN Parker Attending Provider Non-Staff Referring Provider Specialty: Medical Address: [address] [place] [address], [place], [address] Email: Modified Barium Swallow Study [employer] Modified Barium Swallow Study Start: 04/09/25 12:10 Freq: Status: Active Protocol: Document 04/09/25 12:10 LNK (Rec: 04/09/25 12:45 LNK Desktop) Modified Barium Swallow Study Total Time Visit Start Time 10:00 Visit Stop Time 11:45 Total Visit Minutes 45 Referral Referring Physician JEEVAN Parker Reason for Referral dysphagia Setting Setting Acute Care Patient Information Identification Type Name,Date of Patient History Pt was seen for a Modified Barium Swallow Study at the referral of JEEVAN Parker at [facility] [place]. According to the referral, pt underwent a hemithroidectomy on 04/02/2024. 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 The pt further described that on the video( stroboscoopy?), she could see the middle of the vocal folds meet and at one end, there was a gap. Pt could not recall if the gap was at the anterior or posterior of the vocal folds. Pt was referred for MBSS to determine if, as a result of the VF paresis, she was at risk for aspiration. Pt reported that she clears her throat alot. She also noted she has PND all of the time. When asked about coughing/choking during meals, pt stated she sometimes will cough during meal. She denied choking. She could not name any specific foods or liquids that are difficult to swallow. Pt denied any head/neck injury or surgery or neurological diagnoses. She did report she has 'heartburn for which she self treats with Tums. Subjective Pt was seated in the flouroscopy chair with directions Observations and procedures explained for him. He indicated he understood and agreed to proceed. Patient Positioning Position View Lat-A/P Imaging Lateral View Textures Administered Barium Tablet Yes The IDDSI Framework Protocol: IDDSI.1 Oral Impairment Source: The Modified Barium Swallow Impairment Profile (MBSImP??) Lip Closure No labial escape Tongue Control Cohesive bolus between tongue to palatal seal During Bolus Hold Bolus Preparation/ Timely & efficient chewing & mashing Mastication Bolus Transport/ Brisk tongue motion Lingual Motion Oral Residue Complete oral clearance Initiation of Bolus head at posterior angle of ramus (first hyoid Pharyngeal Swallow excursion) Additional Oral Oral phase swallow observed to be WNL Impairment *OME and DKS were observed to be WNL. Observations *Dentition natural and in good hygiene *Mastication observed with rotary chew pattern. *Bolus hold observed in the anterior of pt's mouth which is considered a normal variant *Good bolus formation, control and AP transition. *Velopharyngeal closure was WNL. Pharyngeal Impairment Source: The Modified Barium Swallow Impairment Profile (MBSImP??) Soft Palate No bolus between soft palate & pharyngeal wall Elevation Laryngeal Elevation Comp.sup.move.thyroid cart.w/comp.approx.arytenoids to epiglot petiole Anterior Hyoid Complete anterior movement Excursion Epiglottic Movement Complete inversion Laryngeal Vestibular Complete; no air/contrast in laryngeal vestibule Closure Pharyngeal Stripping Present - complete Wave Pharyngoesophageal Complete distention & complete duration; no obstruction Segment Opening of flow Tongue Base No contrast between tongue base & posterior pharyngeal Retraction wall Pharyngeal Residue Complete pharyngeal clearance Additional Pharyngeal phase of swallow WNL Pharyngeal *Adequate hyolaryngeal elevation and movement Impairment *Complete epiglottal inversion and seal of the Observations laryngeal vestibule *UES duration and extension adequate *Trace to no contrast residual within pharynx *No laryngeal penetration or tracheal aspiration observed A/P View Textures Administered Trials Presented Thin Liquid via Cup (IDDSI 0) The IDDSI Framework Protocol: IDDSI.1 A/P View Observations Pharyngeal Complete Contraction Esophageal Clearance Complete clearance; esophageal coating Upright Position Vocal Fold Function Good Esophageal Function WFL Additional A-P Thin barium and calibrated barium tablet provided for Observations AP trials *Initial view of the esophagus indicated all prior trials had cleared to the stomach. *Thin barium and barium tablet observed to clear to the stomach in a timely manner Esophageal phase of swallow observed to be WNL Clinical Impressions Dysphagia Type WNL Findings *Pt presented with oral, pharyngeal and esophageal swallow phases WNL (see above phase observations for detail) *No observed laryngeal penetration or tracheal aspiration observed. Airway well protected. *Suspect pt throat-clearing related to her report of persistent PND Patient Appropriate Yes: No dysphagia therapy; Vocal therapy recommended for Therapy Recommendations Diet Comments No diet changes recommended Treatment Plan Therapy Outpatient Speech Therapy Recommendations
== END ==
LOC: RAD 09:47
PROVIDERS: Family Provider Internal Medicine; PCP Internal Medicine; Referring Provider Nurse Practitioner Family; Visit Provider Nurse Practitioner Family
DX: J38.01 Paralysis of vocal cords and larynx, unilateral (principal); R13.13 Dysphagia, pharyngeal phase; R49.0 Dysphonia
CPT/HCPCS: 74230; 92611

== ENCOUNTER → 2025-05-17 15:49 | Outpatient (CLI) | payer OTHER, SELFPAY ==
[2025-05-17 16:48] LABS: Add Manual Diff / Slide Review NO; Hematocrit 40.8 % (36-46); Hemoglobin 13.9 g/dL (12.0-16.0); Lymphocytes Absolute Auto 1900 /uL (1100-4500); Mean Corpuscular HGB Conc 34.0 % (30-36); Mean Corpuscular Hemoglobin 29.1 PG (26-34); Mean Corpuscular Volume 85.4 fL (80-100); Platelet Count 274 X10^3/uL (150-400)
[2025-05-17 17:10] LABS: Alanine Aminotransferase 14 IU/L (<35); Albumin 4.6 g/dL (3.5-5.0); Albumin Globulin Ratio 1.4 (1.0-2.8); Alkaline Phosphatase 88 U/L (38-126); Blood Urea Nitrogen 11 mg/dL (7-17); Calcium 9.3 mg/dL (8.4-10.2); Carbon Dioxide 29 mmol/L (22-32); Chloride 101 mmol/L (98-107); Estimated Glomerular Filt Rate > 60 mL/min (>60); Globulin 3.3 g/dL (1.7-4.1); Glucose 88 mg/dL (70-99); HEMOLYSIS < 15 (0-50); Potassium 4.1 mmol/L (3.4-5.1); Sodium 138 mmol/L (137-145); Total Protein 7.9 g/dL (6.3-8.2)
[2025-05-17 17:42] LABS: TSH w/ Reflex to FT4 1.94 uIU/mL (0.47-4.68)
[2025-05-17 17:44] LABS: Estradiol, Total 30.0 pg/mL
[2025-05-17 18:08] LABS: Follicle Stimulating Hormone 41.9 mIU/mL
== END ==
PROVIDERS: Family Provider Internal Medicine; PCP Internal Medicine; Referring Provider Obstetrics & Gynecology; Visit Provider Obstetrics & Gynecology
DX: N95.1 Menopausal and female climacteric states (principal); R53.83 Other fatigue
CPT/HCPCS: 80053; 82627; 82670; 83001; 84402; 84403; 84443; 85025

== ENCOUNTER → 2025-07-03 15:16 | Outpatient (CLI) | payer OTHER, SELFPAY | PROVIDERS: Obstetrics & Gynecology; PCP Internal Medicine; Referring Provider Internal Medicine; Visit Provider Family Medicine | DX: N95.1 Menopausal and female climacteric states (principal); R53.83 Other fatigue | CPT/HCPCS: 36415; 84402; 84403 ==